=== PATIENT | male | born 1965 | race Caucasian/White ===

== ENCOUNTER 2019-02-22 03:06 | Emergency (ER) | payer MEDICAID, OTHER ==
[~2019-02-22] VITALS: Ht 177.8 cm; Wt 83.9 kg
[2019-02-22] MEDS ORDERED: ASPI-605 PO (03:38)
[2019-02-22] MEDS ORDERED: PANT40TA4 PO (03:38)
[2019-02-22] MEDS ORDERED: TERA2CAP4 PO (03:38)
[2019-02-22] MEDS ORDERED: LABE200T5 PO (03:38)
[2019-02-22] MEDS ORDERED: AMLO10TA7 PO (03:38)
[2019-02-22] MEDS ORDERED: LABE100T5 PO (03:38)
--- NOTE | 2019-02-22 03:45 | NUR ---
Pt provided urine sample sent to lab.
[2019-02-22 03:56] LABS: *BILIRUBIN,URIN NEGATIVE (NEGATIVE); *BLOOD, URINE NEGATIVE (NEGATIVE); *CLARITY,URINE CLEAR (CLEAR); *COLOR,URINE YELLOW (YELLOW); *KETONES,URINE NEGATIVE (NEGATIVE); *UROBILINOGEN,URINE 0.2 E.U./dl (NORMAL); LEUKOCYTE ESTERASE ,URINE NEGATIVE (NEGATIVE); NITRITE, URINE NEGATIVE (NEGATIVE); PH,URINE 5.5 (5.0-8.0); UGLUCOSE NEGATIVE (NEGATIVE)
--- NOTE | 2019-02-22 04:14 | NUR ---
Dr. Viera at bedside for MSE.
[2019-02-22] MEDS ORDERED: IV NORMAL SALINE 1000 ML BAG IV ONE (04:30)
[2019-02-22] MEDS ORDERED: ONDANSETRON 4 MG/2 ML VIAL IV ONE (04:30)
[2019-02-22] MEDS ORDERED: HYDROMORPHONE 1 MG/1 ML DISP.SYRIN IV ONE ×3 (04:30→07:15)
[2019-02-22] MEDS ORDERED: ONDANSETRON 4 MG/2 ML VIAL ONE (04:32)
[2019-02-22] MEDS ORDERED: HYDROMORPHONE 1 MG/1 ML DISP.SYRIN ONE ×3 (04:32→07:08)
[2019-02-22 04:38] LABS: BASOPHILS # (AUTO) 0.1 K/uL (0.0-8.0); BASOPHILS % (AUTO) 0.9 % (0.0-2.0); EOSINOPHILS # (AUTO) 0.4 K/uL (0.0-0.7); EOSINOPHILS % (AUTO) 4.4 % (0.0-7.0); HEMATOCRIT 32.4 % (36.7-47.1); HEMOGLOBIN 11.2 g/dL (12.5-16.3); LYMPHOCYTES # (AUTO) 2.1 K/uL (20.0-40.0); LYMPHOCYTES % (AUTO) 23.4 % (20.5-51.5); MEAN CORPUSCULAR HEMOGLOBIN 32.2 uug (23.8-33.4); MEAN CORPUSCULAR HGB CONC 34 g/dL (32.5-36.3); MEAN CORPUSCULAR VOLUME 93.6 fL (73.0-96.2); MONOCYTES # (AUTO) 0.8 K/uL (2.0-10.0); MONOCYTES % (AUTO) 9.2 % (0.0-11.0); NEUTROPHILS # (AUTO) 5.6 K/uL (1.8-8.9); NEUTROPHILS % (AUTO) 62.1 % (38.5-71.5); PLATELET COUNT (AUTO) 298 K/uL (152-348); RED BLOOD CELL COUNT(AUTO) 3.46 MIL/uL (4.06-5.63); WHITE BLOOD COUNT (AUTO) 8.9 K/uL (3.6-10.2)
--- NOTE | 2019-02-22 04:42 | NUR ---
Xray at bedside.
[2019-02-22 04:51] LABS: BILIRUBIN,DIRECT 0.1 mg/dL (0.0-0.2); BILIRUBIN,TOTAL 0.2 mg/dL (0.2-1.0); CREATININE 1.3 mg/dL (0.6-1.3); TOTAL PROTEIN, SERUM 7.3 g/dL (6.4-8.2)
--- NOTE | 2019-02-22 05:01 | NUR ---
Pt out of ER for CT.
[2019-02-22] MEDS ORDERED: SWABABLE VALVE TRANSFER SET EA MC ONE (05:09)
[2019-02-22] MEDS ORDERED: IOHEXOL 350 100 ML INFUS..BTL ONE (05:10)
[2019-02-22] MEDS ORDERED: IV NORMAL SALINE 250 ML IV ONE (05:10)
--- NOTE | 2019-02-22 05:25 | NUR ---
Pt back to ER from CT.
--- NOTE | 2019-02-22 07:17 | NUR ---
Report given to Medina Floyd RN.
--- NOTE | 2019-02-22 07:27 | NUR ---
case hardener called from [facility] called and talked to dr. mccoy.
--- NOTE | 2019-02-22 07:51 | NUR ---
called [facility], talked to macrina marquez, and faxed the summary report per request at [phone].
--- NOTE | 2019-02-22 08:00 | NUR ---
CALLED [facility] FOR A LATERAL TRANSFER OF A HIGHER LEVEL OF CARE. AND SPOKEN WITH LICHA CABA.
--- NOTE | 2019-02-22 08:06 | NUR ---
macrina from [facility] caled back and said that their surgeon cannot accept the pt.
--- NOTE | 2019-02-22 08:07 | NUR ---
called [facility] and talked to valerie at [facility].
--- NOTE | 2019-02-22 08:14 | NUR ---
called [facility]ed to eddie. per eddie, only ob and pediatric is available today.
--- NOTE | 2019-02-22 08:15 | NUR ---
CALLED [facility] CARDIOTHORACIC SURGEON DR GREGORY JAVED AND LEFT A MESSAGE WITH REGULATORY COORDINATOR RAMIN.
--- NOTE | 2019-02-22 08:21 | NUR ---
called [facility] at [phone], was told that they dont accept thoracic pts.
--- NOTE | 2019-02-22 08:24 | NUR ---
KARLA FROM [facility] CALLED AND SAID THAT DR. HUE HUBER WHO IS SOLAR ENERGY ENGINEER FOR DR. GREGORY SMILEY, CANNOT ACCEPT NEW PT NOW.
--- NOTE | 2019-02-22 08:26 | NUR ---
CALLED [facility] REGARDING PT TRANSFER FOR HIGHER LEVEL OF CARE AND LEFT MESSAGE WITH MACHINING MANAGER ANSWERING MACHINE.
--- NOTE | 2019-02-22 08:30 | NUR ---
CALLED DR. WEEMS AND DR. WEEMS TALKED TO DR. BALLARD. Addendum: 02/22/[address] BROUSSARD SCHOOL PSYCHOLOGIST ASSISTANT FOR DR. WEEMS CANNOT ACCEPT PT BECAUSE HE HAS 2 EMERGENCIES NOW.
--- NOTE | 2019-02-22 08:38 | NUR ---
DR. MUÑOZ FROM [facility] CALLED BACK AND SAID THAT HE IS NOT AVAILABLE TODAY.
--- NOTE | 2019-02-22 08:47 | NUR ---
CALLED [facility] AND TALKED TO AZEEM AND FAXED THE SUMMARY REPORT TO [phone]
--- NOTE | 2019-02-22 09:20 | NUR ---
PT WANTED TO GO HOME AMA. DR BALLARD TALKED TO PT AND EXPLAINED OF THE HIGH RISKS. PT INSISTED TO GO AMA. VSS. NO C/O PAIN AT THIS TIME.
--- NOTE | 2019-02-22 09:35 | NUR ---
PT SIGNED AMA FORM. DISCHARGED VIA W/C ACCOMPANIED BY HIS GIRLFRIEND.
[2019-02-22 09:47] VITALS: BP 120/64
== END 2019-02-22 09:30 | disposition left against medical advice (07) ==
LOC: ER 03:07
DX: R10.9 Unspecified abdominal pain (principal); F15.10 Other stimulant abuse, uncomplicated; F17.290 Nicotine dependence, other tobacco product, uncomplicated; Z71.6 Tobacco abuse counseling; Z95.1 Presence of aortocoronary bypass graft; Z79.82 Long term (current) use of aspirin; Z79.899 Other long term (current) drug therapy
CPT/HCPCS: 36415; 71045; 71275; 74174; 80048; 80076; 81001; 83690; 84484; 85025; 85730; 86850; 86900; 86901; 93005; 96374; 96375; 96376; 99284; 99406; J1170 ×3; J2405; Q9967; 70030-TC; A4663; J7030; J7050

== ENCOUNTER 2019-08-07 00:15 | Emergency (ER) | payer OTHER ==
[~2019-08-07] VITALS: Ht 177.8 cm; Wt 86.2 kg
[2019-08-07] MEDS ORDERED: ACETAMINOPHEN 325 MG TABLET PO ONE (01:00)
[2019-08-07] MEDS ORDERED: CLINDAMYCIN PHOSPHATE IV 900 MG in IV DEXTROSE 5% 100 ML IV ONE (01:00)
[2019-08-07] MEDS ORDERED: IV NS 1000 ML 1,000 ML IV ONE (01:00)
[2019-08-07] MEDS ORDERED: MORPHINE SULFATE 4 MG/1 ML DISP.SYRIN IV ONE (01:00)
[2019-08-07] MEDS ORDERED: ACETAMINOPHEN 325 MG TABLET ONE (01:28)
[2019-08-07] MEDS ORDERED: MORPHINE SULFATE 4 MG/1 ML DISP.SYRIN ONE (01:29)
[2019-08-07] MEDS ORDERED: CLINDAMYCIN 900MG/D5W 100ML IVPB **ER PYXIS ONLY IJ ONE (02:28)
--- NOTE | 2019-08-07 02:35 | NUR ---
blood drawn and sent to lab
[2019-08-07 02:53] LABS: BASOPHILS # (AUTO) 0.1 K/uL (0.0-8.0); BASOPHILS % (AUTO) 0.7 % (0.0-2.0); EOSINOPHILS # (AUTO) 0.1 K/uL (0.0-0.7); HEMATOCRIT 39.4 % (36.7-47.1); HEMOGLOBIN 13.2 g/dL (12.5-16.3); LYMPHOCYTES # (AUTO) 0.9 K/uL (20.0-40.0); LYMPHOCYTES % (AUTO) 11.5 % (20.5-51.5); MEAN CORPUSCULAR HEMOGLOBIN 30.1 uug (23.8-33.4); MEAN CORPUSCULAR HGB CONC 34 g/dL (32.5-36.3); MEAN CORPUSCULAR VOLUME 89.7 fL (73.0-96.2); MONOCYTES # (AUTO) 0.6 K/uL (2.0-10.0); MONOCYTES % (AUTO) 7.4 % (0.0-11.0); NEUTROPHILS # (AUTO) 6.2 K/uL (1.8-8.9); NEUTROPHILS % (AUTO) 79.4 % (38.5-71.5); PLATELET COUNT (AUTO) 153 K/uL (152-348); RED BLOOD CELL COUNT(AUTO) 4.39 MIL/uL (4.06-5.63); WHITE BLOOD COUNT (AUTO) 7.9 K/uL (3.6-10.2)
[2019-08-07 02:54] LABS: CREATININE 1.4 mg/dL (0.6-1.3); POTASSIUM 3.6 mmol/L (3.5-5.1)
[2019-08-07] MEDS ORDERED: MORPHINE SULFATE 4 MG/1 ML DISP.SYRIN IM ONE (03:00)
--- NOTE | 2019-08-07 05:00 | NUR ---
Called [facility] for panel placement
--- NOTE | 2019-08-07 05:25 | NUR ---
Patient does not wish to proceed with medical care recommended by Dr. Pimentel. Patient given information related to possible complications, up to and including , which could occur as a result of leaving the hospital at this time. Patient verbalizes understanding of risks involved due to leaving against medical advice. Patient has signed AMA form. IV removed. Catheter intact and site benign. Pressure and 4x4 gauze applied to site. No bleeding noted. Patient ambulating with steady gait
--- NOTE | 2019-08-07 05:25 | NUR ---
Patient's friend outside to take patient home.
[2019-08-07 05:35] VITALS: BP 152/102
== END 2019-08-07 05:25 | disposition left against medical advice (07) ==
LOC: ER 00:22
DX: L03.211 Cellulitis of face (principal); N28.9 Disorder of kidney and ureter, unspecified; I10 Essential (primary) hypertension; F17.200 Nicotine dependence, unspecified, uncomplicated; Z79.82 Long term (current) use of aspirin; Z79.899 Other long term (current) drug therapy
CPT/HCPCS: 36415; 70486; 80048; 83605; 85025; 87400; 96365; 96372; 99285; J2270; J3490; A4663; J7030

== ENCOUNTER 2019-08-27 16:14 | Emergency (ER) | payer OTHER ==
[~2019-08-27] VITALS: Ht 177.8 cm; Wt 85.3 kg
--- NOTE | 2019-08-27 16:21 | NUR ---
DR CAMPUZANO AT BEDSIDE FOR MSE. STROKE ASSESSMENT AND STROKE PROTOCOLS IN PLACE. PT IS ALERT AND ORIENTED X 4. NIHSS SCORE OF 2.
--- NOTE | 2019-08-27 16:35 | NUR ---
WENT DOWN FOR CT
--- NOTE | 2019-08-27 16:35 | NUR ---
REFUSED IV INSERTION ON GOOD ARM, INSISTING ON SPECIFIC LOCATION TO INSERT IV.
[2019-08-27] MEDS ORDERED: AMLO10TA4 PO (16:36)
--- NOTE | 2019-08-27 16:45 | NUR ---
BACK FROM CT STABLE CONDITION AT THIS TIME, AMBULATORY WENT TO BATHROOM.
[2019-08-27 17:00] LABS: *BILIRUBIN,URIN NEGATIVE (NEGATIVE); *BLOOD, URINE NEGATIVE (NEGATIVE); *CLARITY,URINE CLEAR (CLEAR); *COLOR,URINE YELLOW (YELLOW); *KETONES,URINE NEGATIVE (NEGATIVE); *UROBILINOGEN,URINE 0.2 E.U./dl (NORMAL); LEUKOCYTE ESTERASE ,URINE NEGATIVE (NEGATIVE); NITRITE, URINE NEGATIVE (NEGATIVE); PH,URINE 5.5 (5.0-8.0); UGLUCOSE NEGATIVE (NEGATIVE)
[2019-08-27] MEDS ORDERED: ASPIRIN 325 MG TABLET PO ONE (17:00)
[2019-08-27] MEDS ORDERED: ASPIRIN 325 MG TABLET ONE (17:04)
[2019-08-27 17:05] LABS: BASOPHILS # (AUTO) 0.1 K/uL (0.0-8.0); BASOPHILS % (AUTO) 1.2 % (0.0-2.0); EOSINOPHILS # (AUTO) 0.2 K/uL (0.0-0.7); EOSINOPHILS % (AUTO) 3.2 % (0.0-7.0); HEMATOCRIT 40.2 % (36.7-47.1); HEMOGLOBIN 13.3 g/dL (12.5-16.3); LYMPHOCYTES # (AUTO) 2.1 K/uL (20.0-40.0); LYMPHOCYTES % (AUTO) 29.8 % (20.5-51.5); MEAN CORPUSCULAR HEMOGLOBIN 29.9 uug (23.8-33.4); MEAN CORPUSCULAR HGB CONC 33 g/dL (32.5-36.3); MEAN CORPUSCULAR VOLUME 90.5 fL (73.0-96.2); MONOCYTES # (AUTO) 0.6 K/uL (2.0-10.0); MONOCYTES % (AUTO) 8.9 % (0.0-11.0); NEUTROPHILS # (AUTO) 4.1 K/uL (1.8-8.9); NEUTROPHILS % (AUTO) 56.9 % (38.5-71.5); PLATELET COUNT (AUTO) 194 K/uL (152-348); RED BLOOD CELL COUNT(AUTO) 4.44 MIL/uL (4.06-5.63); WHITE BLOOD COUNT (AUTO) 7.2 K/uL (3.6-10.2)
[2019-08-27 17:14] LABS: CREATININE 1.6 mg/dL (0.6-1.3); POTASSIUM 4.1 mmol/L (3.5-5.1)
[2019-08-27 17:20] LABS: BILIRUBIN,DIRECT 0.1 mg/dL (0.0-0.2); BILIRUBIN,TOTAL 0.2 mg/dL (0.2-1.0); TOTAL PROTEIN, SERUM 7.4 g/dL (6.4-8.2)
[2019-08-27] MEDS ORDERED: LABETALOL HCL 100 MG/20 ML VIAL ONE (17:20)
[2019-08-27 17:23] LABS: *AMPHETAMINE, URINE POSITIVE (NEGATIVE); *BARBITURATE, URINE NEGATIVE (NEGATIVE); *CANNABINOID, URINE NEGATIVE (NEGATIVE); *COCCAINE, URINE POSITIVE (NEGATIVE); *OPIATE, URINE NEGATIVE (NEGATIVE); *PHENCYCLIDINE SCREEN,URINE NEGATIVE (NEGATIVE)
[2019-08-27] MEDS ORDERED: LABETALOL HCL 100 MG/20 ML VIAL IV ONE (17:30)
--- NOTE | 2019-08-27 17:54 | NUR ---
Patient does not wish to proceed with medical care recommended by Dr. Sparks. Patient given information related to possible complications, up to and including , which could occur as a result of leaving the hospital at this time. Patient verbalizes understanding of risks involved due to leaving against medical advice. Patient has signed AMA form. R FA IV removed. No signs of bleeding. Ambulated out of ER.
[2019-08-27 18:01] VITALS: BP 158/107
== END 2019-08-27 17:55 | disposition left against medical advice (07) ==
LOC: ER 16:14
DX: I63.9 Cerebral infarction, unspecified (principal); R27.0 Ataxia, unspecified; R40.2362 Coma scale, best motor response, obeys commands, at arrival to emergency department; R40.2142 Coma scale, eyes open, spontaneous, at arrival to emergency department; R40.2252 Coma scale, best verbal response, oriented, at arrival to emergency department; I10 Essential (primary) hypertension; R29.702 NIHSS score 2; Z95.828 Presence of other vascular implants and grafts; F15.10 Other stimulant abuse, uncomplicated; N28.9 Disorder of kidney and ureter, unspecified
CPT/HCPCS: 36415; 70450; 71045; 80048; 80061; 80076; 80307; 81001; 84484; 85025; 85730; 93005; 96374; 99285; J3490; 70030-TC; A4663

== ENCOUNTER 2020-07-22 09:41 | Emergency (ER) | payer OTHER ==
[~2020-07-22] VITALS: Ht 177.8 cm; Wt 83.9 kg
[~2020-07-22 09:41] MED LIST: AMLO10TA4 PO
[2020-07-22 10:24] LABS: CREATININE 1.4 mg/dL (0.6-1.3)
[2020-07-22 10:28] LABS: BASOPHILS # (AUTO) 0.1 K/uL (0.0-8.0); BASOPHILS % (AUTO) 0.8 % (0.0-2.0); EOSINOPHILS # (AUTO) 0.1 K/uL (0.0-0.7); EOSINOPHILS % (AUTO) 1.5 % (0.0-7.0); HEMATOCRIT 45.9 % (36.7-47.1); HEMOGLOBIN 15.1 g/dL (12.5-16.3); LYMPHOCYTES # (AUTO) 1.6 K/uL (20.0-40.0); LYMPHOCYTES % (AUTO) 18.2 % (20.5-51.5); MEAN CORPUSCULAR HEMOGLOBIN 30.6 uug (23.8-33.4); MEAN CORPUSCULAR HGB CONC 33 g/dL (32.5-36.3); MONOCYTES # (AUTO) 0.6 K/uL (2.0-10.0); MONOCYTES % (AUTO) 7.6 % (0.0-11.0); NEUTROPHILS # (AUTO) 6.1 K/uL (1.8-8.9); NEUTROPHILS % (AUTO) 71.9 % (38.5-71.5); PLATELET COUNT (AUTO) 182 K/uL (152-348); RED BLOOD CELL COUNT(AUTO) 4.94 MIL/uL (4.06-5.63); WHITE BLOOD COUNT (AUTO) 8.5 K/uL (3.6-10.2)
[2020-07-22] MEDS ORDERED: ASPIRIN 325 MG TABLET PO ONE (11:00)
--- NOTE | 2020-07-22 11:27 | NUR ---
Patient does not want to be admitted to a hospital. Patient does not wish to proceed with medical care recommended by Dr. Falk. Patient was given information related to possible complications, up to and including , which could occur as a result of leaving the hospital at this time. Patient verbalized understanding of risks involved due to leaving against medical advice. Patient has signed AMA form. Patient left ER with slow steady gait. He said he will wait for his daughter for a ride.
[2020-07-22] MEDS ORDERED: ASPIRIN EC 325 MG TABLET.DR PO ONE (11:29)
== END 2020-07-22 11:28 | disposition left against medical advice (07) ==
LOC: ER 09:41
DX: H49.10 Fourth [trochlear] nerve palsy, unspecified eye (principal); H55.89 Other irregular eye movements; R42 Dizziness and giddiness; I69.993 Ataxia following unspecified cerebrovascular disease; Z79.899 Other long term (current) drug therapy; R03.0 Elevated blood-pressure reading, without diagnosis of hypertension
CPT/HCPCS: 36415; 70030-TC; 70450; 71045; 85025; 85730; 93005; A4663

== ENCOUNTER 2021-04-19 01:35 | Emergency (ER) | payer OTHER ==
[~2021-04-19] VITALS: Ht 182.9 cm; Wt 79.4 kg
[2021-04-19] MEDS ORDERED: ONDANSETRON 4 MG/2 ML VIAL IV ONE (02:15)
[2021-04-19] MEDS ORDERED: METOPROLOL TARTRATE 5 MG/5 ML VIAL IVP ONE ×2 (02:15→02:30)
[2021-04-19] MEDS ORDERED: NITROGLYCERIN OINT 1 GM PACKET TP ONE ×2 (02:15→02:29)
[2021-04-19] MEDS ORDERED: MORPHINE SULFATE 4 MG/1 ML DISP.SYRIN IV ONE (02:15)
[2021-04-19] MEDS ORDERED: NITROGLYCERIN 0.4 MG/TAB BOTTLE SL ONE ×2 (02:15→02:30)
[2021-04-19] MEDS ORDERED: SWABABLE VALVE TRANSFER SET EA MC ONE (02:29)
[2021-04-19] MEDS ORDERED: IV NORMAL SALINE 250 ML IV ONE (02:29)
[2021-04-19] MEDS ORDERED: IOHEXOL 350 100 ML INFUS..BTL ONE (02:29)
[2021-04-19] MEDS ORDERED: MORPHINE SULFATE 4 MG/1 ML DISP.SYRIN ONE (02:30)
[2021-04-19] MEDS ORDERED: ONDANSETRON 4 MG/2 ML VIAL ONE (02:30)
[2021-04-19] MEDS ORDERED: IV NORMAL SALINE 500 ML BAG IV ONE (02:30)
[2021-04-19] MEDS ORDERED: MORPHINE SULFATE 2 MG/1 ML DISP.SYRIN ONE (02:30)
--- NOTE | 2021-04-19 02:33 | NUR ---
PATIENT WAS GIVEN 1ST DOSE OF NITRO SUB LINGUAL CP PAIN IS 2/10 ORESSURE.
--- NOTE | 2021-04-19 02:36 | NUR ---
PATIENT OUT OF UNIT FOR CT SCAN
--- NOTE | 2021-04-19 02:38 | NUR ---
PATIENT DENIES CP AT THIS TIME.
--- NOTE | 2021-04-19 02:51 | NUR ---
PATIENT BACK FROM CT SCAN WITH NO DISTRESS NOTED. PATIENT DENIES CP OR SOB AT THIS TIME.
[2021-04-19 03:06] LABS: HEMATOCRIT 23.4 % (36.7-47.1); MEAN CORPUSCULAR HEMOGLOBIN 31.6 uug (23.8-33.4); MEAN CORPUSCULAR VOLUME 90.2 fL (73.0-96.2); PLATELET COUNT (AUTO) 54 K/uL (152-348)
[2021-04-19] MEDS ORDERED: LABETALOL HCL 100 MG/20 ML VIAL ONE (03:17)
--- NOTE | 2021-04-19 03:23 | NUR ---
Called [facility] for STAT readings for CTA of the chest and abdomen
[2021-04-19 03:37] LABS: POTASSIUM 3.8 mmol/L (3.5-5.1)
[2021-04-19 03:42] LABS: CREATININE 8.2 mg/dL (0.6-1.3)
[2021-04-19 03:50] LABS: BILIRUBIN,DIRECT 0.2 mg/dL (0.0-0.2); BILIRUBIN,TOTAL 0.9 mg/dL (0.2-1.0); TOTAL PROTEIN, SERUM 7.8 g/dL (6.4-8.2)
--- NOTE | 2021-04-19 03:55 | NUR ---
CALLED [facility] ER SPOKE WITH CHARGE NURSE RENATO MURPHY HIGHER LEVEL OF CARE. TEST RESULTS FAXED
[2021-04-19] MEDS ORDERED: LABETALOL HCL 100 MG/20 ML VIAL IV ONE (04:00)
[2021-04-19] MEDS ORDERED: ESMOLOL 2.5 GM/NS 250 ML DRIP 250 ML IV PRN (04:00)
[2021-04-19] MEDS ORDERED: ESMOLOL 2.5 GM/NS 250 ML DRIP 250 ML IV ONE (04:13)
[2021-04-19 04:20] VITALS: BP 189/134
--- NOTE | 2021-04-19 04:33 | NUR ---
CALLED [facility], SPOKE TO KENNETH WHO IS REQUESTING FACESHEET AND SUMMARY REPORT TO BE FAXED TO
--- NOTE | 2021-04-19 08:00 | NUR ---
Pt is resting in gurney with NAD noted at this time. Esmolol drip is at 170mcg/kg/min at this time. BP 142/91, HR 68, RR 18, Pulse ox 99%.
--- NOTE | 2021-04-19 08:13 | NUR ---
CALLED [facility] FOR HIGHER LEVEL OF CARE NO AVAILABLE BEDS AT THIS TIME.
--- NOTE | 2021-04-19 08:26 | NUR ---
CALLED SPOKE WITH [facility] NURSE FOR HIGHER LEVEL OF CARE TRANSFER.
--- NOTE | 2021-04-19 09:45 | NUR ---
Esmolol drip increased to 200mcg/kg/min, per titrate to keep pt's HR in the 60's. BP 129/94 HR 79 RR 17 Pulse Ox 98%. Pt stated he is hungry, pt is NPO with ice chips only at this time per . Plan of care discussed with pt. Multiple facilities including every facility in the [facility] and major hospitals in the [facility] area with service needed have been contacted for HLOC transfer with no acceptance at this time.
--- NOTE | 2021-04-19 09:53 | NUR ---
[facility]IN[facility] BUTLER CALLED WILL BE NOT ABLE TO TAKE PATIENT PER GISELA.
--- NOTE | 2021-04-19 11:04 | NUR ---
ALLAN NURSE FROM [facility] CALLED PATIENT WAS ACCEPTED FOR TRANSFER BY DR FENG.
--- NOTE | 2021-04-19 11:22 | NUR ---
REPORT GIVEN TO RONIT DURÁN AT [facility] [phone]
--- NOTE | 2021-04-19 12:10 | NUR ---
REPORT GIVEN TO NURSE [facility].
== END 2021-04-19 12:10 | disposition short-term general hospital (02) ==
LOC: ER 01:36
DX: I71.01 Dissection of thoracic aorta (principal); I71.02 Dissection of abdominal aorta; I21.4 Non-ST elevation (NSTEMI) myocardial infarction; I16.1 Hypertensive emergency; I10 Essential (primary) hypertension; F15.10 Other stimulant abuse, uncomplicated; F17.210 Nicotine dependence, cigarettes, uncomplicated; N17.9 Acute kidney failure, unspecified; Z20.822 Contact with and (suspected) exposure to COVID-19
CPT/HCPCS: 36415; 71275; 74175; 80048; 80076; 80307; 83880; 84484; 85025; 85379; 85730; 86850; 86900; 86901; 86920; 87426; 93005; 96361; 96365; 96366; 96375; 99291; 99406; J2270 ×2; J2405; J3490 ×5; Q9967; 70030-TC; A4663; J7030; J7050

== ENCOUNTER 2021-05-28 20:51 | Emergency (ER) | payer OTHER ==
[~2021-05-28] VITALS: Ht 177.8 cm; Wt 81.6 kg
[2021-05-28] MEDS ORDERED: ASPIRIN 81 MG TAB.CHEW PO ONE (21:15)
[2021-05-28] MEDS ORDERED: NITROGLYCERIN OINT 1 GM PACKET TP ONE ×2 (21:15→21:54)
[2021-05-28] MEDS ORDERED: GUAIFENESIN/CODEINE 5 ML LIQUID UDC PO ONE (21:30)
--- NOTE | 2021-05-28 21:30 | NUR ---
Pt brought back to room ED2A by workforce consultant Adrian. Pt placed on gurney in pos of comfort and connected to monitor. VSS, PE WNL pt complaining of chest pain 6/10 and moaning and growning.
--- NOTE | 2021-05-28 21:35 | NUR ---
EDMD at bedside to eval pt.
--- NOTE | 2021-05-28 21:50 | NUR ---
Ordered meds given to pt, pt tolerated well with no s/sx of reaction noted. PCXR performed. IV started and blood collected for lab tests. Pt resting comfortably
[2021-05-28 21:51] LABS: CREATININE 5.7 mg/dL (0.6-1.3); POTASSIUM 3.6 mmol/L (3.5-5.1)
[2021-05-28] MEDS ORDERED: ASPIRIN 81 MG TAB.CHEW ONE (21:54)
[2021-05-28 21:56] LABS: HEMATOCRIT 23.4 % (36.7-47.1); MEAN CORPUSCULAR HEMOGLOBIN 32.1 uug (23.8-33.4); MEAN CORPUSCULAR VOLUME 94.4 fL (73.0-96.2); PLATELET COUNT (AUTO) 196 K/uL (152-348)
[2021-05-28] MEDS ORDERED: GUAIFENESIN/CODEINE 5 ML LIQUID UDC ONE (21:56)
[2021-05-28] MEDS ORDERED: HYDROCODONE/APAP 10-325 MG TABLET ONE (21:56)
[2021-05-28] MEDS ORDERED: HYDROCODONE/APAP 10-325 MG TABLET PO ONE (22:00)
[2021-05-28 22:04] LABS: BILIRUBIN,DIRECT 0.1 mg/dL (0.0-0.2); BILIRUBIN,TOTAL 0.3 mg/dL (0.2-1.0); TOTAL PROTEIN, SERUM 6.8 g/dL (6.4-8.2)
[2021-05-28] MEDS ORDERED: AZITHROMYCIN IV 500 MG in IV DEXTROSE 5% 250 ML IV ONE (22:15)
[2021-05-28] MEDS ORDERED: HYDR-3980 PO (22:35)
[2021-05-28] MEDS ORDERED: AZIT250T13 PO (22:35)
[2021-05-28] MEDS ORDERED: GUAI-671 PO (22:35)
[2021-05-28] MEDS ORDERED: CEFU500T66 PO (22:35)
[2021-05-28] MEDS ORDERED: CEFTRIAXONE 1 G in IV DEXTROSE 5% 50 ML IV ONE (22:45)
[2021-05-28] MEDS ORDERED: AZITHROMYCIN 500MG/ D5W 250ML IVPB **ER PYXIS ONLY IV ONE (22:53)
[2021-05-28] MEDS ORDERED: CEFTRIAXONE /D5W 50ML IVPB **ER PYXIS IV ONE (22:59)
--- NOTE | 2021-05-28 23:10 | NUR ---
EDMD ordered 2 iv abx and ordered pt to be signed out AMA after completeing both IV abx.
--- NOTE | 2021-05-28 23:30 | NUR ---
Pt recieved both abx without difficulty. Pt tolerated well with no s/sx of reaction. IV DCed and pt told to get ready to be DCed home.
--- NOTE | 2021-05-28 23:45 | NUR ---
Last VS taken. VSS, PE WNL, pt denies any pain, sob, dizziness, n/v. bp:100/70, 96% RA, 85bpm, 15rpm. Had pt sign out AMA and excorted to waiting room via ambulation. Pt had good appearance and VSS. IV Dced and IV site dressed.
[2021-05-29 00:31] VITALS: BP 100/70
== END 2021-05-28 23:45 | disposition left against medical advice (07) ==
LOC: ER 20:55
DX: J18.9 Pneumonia, unspecified organism (principal); J81.1 Chronic pulmonary edema; N19 Unspecified kidney failure; Z86.79 Personal history of other diseases of the circulatory system; Z87.891 Personal history of nicotine dependence; R94.31 Abnormal electrocardiogram [ECG] [EKG]; R93.89 Abnormal findings on diagnostic imaging of other specified body structures
CPT/HCPCS: 36415; 71045; 80048; 80076; 83880; 84484; 85025; 93005; 96365; 96368; 99285; J0456; J0696; 70030-TC; A4663

== ENCOUNTER 2021-06-25 00:54 | Emergency (ER) | payer OTHER ==
[~2021-06-25] VITALS: Ht 177.8 cm; Wt 74.8 kg
[~2021-06-25 00:54] MED LIST changes: -AMLO10TA4 PO; +AZIT250T13 PO; +CEFU500T66 PO; +GUAI-671 PO; +HYDR-3980 PO
--- NOTE | 2021-06-25 01:06 | NUR ---
Dr Pablo into eval patient.
[2021-06-25] MEDS ORDERED: NITROGLYCERIN OINT 1 GM PACKET TP ONE ×2 (01:15→01:31)
[2021-06-25] MEDS ORDERED: HYDROMORPHONE 1 MG/1 ML DISP.SYRIN IV ONE ×2 (01:15→07:00)
[2021-06-25] MEDS ORDERED: CLONIDINE HCL 0.1 MG TABLET PO ONE ×2 (01:15→02:45)
[2021-06-25] MEDS ORDERED: ONDANSETRON 4 MG/2 ML VIAL IV ONE (01:15)
[2021-06-25] MEDS ORDERED: AMLO10TA59 PO (01:18)
[2021-06-25] MEDS ORDERED: AMIO200T5 PO (01:18)
[2021-06-25] MEDS ORDERED: ASPI81TA31 PO (01:18)
[2021-06-25] MEDS ORDERED: ATOR20TA PO (01:18)
--- NOTE | 2021-06-25 01:28 | NUR ---
Patient walked into ER C/O constant nonradiating CP with SOB that started 4 days ago, describing pain as 7/10 aching with pain getting worse in the last 2 days. Patient states he just came in now "because I could not get a ride."
[2021-06-25 01:29] LABS: HEMATOCRIT 27.7 % (36.7-47.1); MEAN CORPUSCULAR HEMOGLOBIN 32.4 uug (23.8-33.4); MEAN CORPUSCULAR VOLUME 96.6 fL (73.0-96.2); PLATELET COUNT (AUTO) 201 K/uL (152-348)
[2021-06-25] MEDS ORDERED: CLONIDINE HCL 0.1 MG TABLET ONE ×2 (01:31→02:46)
[2021-06-25] MEDS ORDERED: ONDANSETRON 4 MG/2 ML VIAL ONE (01:31)
[2021-06-25] MEDS ORDERED: HYDROMORPHONE 1 MG/1 ML DISP.SYRIN ONE ×2 (01:31→07:10)
[2021-06-25 01:58] LABS: CREATININE 3.8 mg/dL (0.6-1.3); POTASSIUM 4.2 mmol/L (3.5-5.1)
--- NOTE | 2021-06-25 02:10 | NUR ---
Patient sleeping on gurny with no distress noted.
--- NOTE | 2021-06-25 02:30 | NUR ---
Chele senior technical specialist attempting to contact medical technicians to do VQ scan.
[2021-06-25] MEDS ORDERED: CHLO25TA13 GT (03:10)
[2021-06-25] MEDS ORDERED: OXYC-128 PO (03:10)
[2021-06-25] MEDS ORDERED: CLON0.1T PO (03:41)
--- NOTE | 2021-06-25 03:50 | NUR ---
Chele milner to get a hold of certified surgical technologist who is on his way to do procedure.
--- NOTE | 2021-06-25 07:16 | NUR ---
PT resting in bed w/o acute pain/distress, states pain is less and is 4/10.
--- NOTE | 2021-06-25 08:03 | NUR ---
Spoke to Angel at [employer] to call [employer] for ETA.
--- NOTE | 2021-06-25 08:50 | NUR ---
Placed a call to nursing supervisor opening and picking andie PRESCOTT scan tech. Also spoke to health tech for ETA.
--- NOTE | 2021-06-25 09:15 | NUR ---
Pt left Er for VQ scan via wheelchair, w/ VQ scan techcarly.
--- NOTE | 2021-06-25 10:10 | NUR ---
Pt back from VQ scan. resting in bed.
--- NOTE | 2021-06-25 10:41 | NUR ---
Pt out of ER for VQ scan, per Sushant Sandhu needed couple of more pictures.
--- NOTE | 2021-06-25 11:49 | NUR ---
IV removed. Catheter intact and site benign. Pressure and 4x4 gauze applied to site. No bleeding noted.
--- NOTE | 2021-06-25 11:49 | NUR ---
Patient does not wish to proceed with medical care recommended by Dr. Fajardo). Patient given information related to possible complications, up to and including , which could occur as a result of leaving the hospital at this time. Patient verbalizes understanding of risks involved due to leaving against medical advice. Patient has signed AMA form.
--- NOTE | 2021-06-25 11:55 | NUR ---
Pt left ER w/ steady gait. stressed follow up care for worsening symptoms.
[2021-06-25 11:57] VITALS: BP 141/82
== END 2021-06-25 11:57 | disposition home or self-care (01) ==
LOC: ER 00:55
DX: R07.89 Other chest pain (principal); F17.210 Nicotine dependence, cigarettes, uncomplicated; Z79.2 Long term (current) use of antibiotics; Z79.899 Other long term (current) drug therapy; Z20.822 Contact with and (suspected) exposure to COVID-19
CPT/HCPCS: 36415; 71045; 78579; 80048; 84484 ×2; 85025; 85379; 87426; 93005; 96374; 96375; 96376; 99285; A9540; J1170 ×2; J2405; 70030-TC; A4663

== ENCOUNTER 2021-06-28 20:44 | Inpatient (IN) | payer OTHER ==
[~2021-06-28] VITALS: Ht 172.7 cm; Wt 74.8 kg
[~2021-06-28 20:44] MED LIST changes: +AMIO200T5 PO; +AMLO10TA59 PO; +ASPI81TA31 PO; +ATOR20TA PO; -AZIT250T13 PO; -CEFU500T66 PO; +CHLO25TA13 GT; +CLON0.1T PO; -GUAI-671 PO; -HYDR-3980 PO; +OXYC-128 PO
--- NOTE | 2021-06-28 21:40 | NUR ---
DR CUEVAS AT BEDSIDE FOR MSE.
[2021-06-28] MEDS ORDERED: NITROGLYCERIN OINT 1 GM PACKET TP ONE ×2 (21:45→21:55)
[2021-06-28] MEDS ORDERED: HYDROCODONE/APAP 5-325MG TABLET PO ONE (21:45)
[2021-06-28] MEDS ORDERED: HYDROCODONE/APAP 5-325MG TABLET ONE (21:55)
[2021-06-28] MEDS ORDERED: ENALAPRILAT DIHYDRATE 1.25 MG/1 ML VIAL IV ONE ×2 (22:00→22:12)
[2021-06-28] MEDS ORDERED: NITROGLYCERIN 0.4 MG/TAB BOTTLE SL ONE ×2 (22:00→22:12)
[2021-06-28 22:04] LABS: HEMATOCRIT 27.5 % (36.7-47.1); MEAN CORPUSCULAR HEMOGLOBIN 32.5 uug (23.8-33.4); MEAN CORPUSCULAR VOLUME 96.5 fL (73.0-96.2); PLATELET COUNT (AUTO) 222 K/uL (152-348)
[2021-06-28 22:10] LABS: CREATININE 3.5 mg/dL (0.6-1.3); POTASSIUM 4.6 mmol/L (3.5-5.1)
--- NOTE | 2021-06-28 22:18 | NUR ---
BLOOD PRESSURE MANAGEMENT 2204 - BP: 201/138, HR: 96 - VASOTEC 2.5 MG IV PUSH GIVEN 2207 - BP: 194/124, HR: 90 - NITROGLYCERIN 0.4 MG TAB SL GIVEN - CHEST PAIN 03/05 2213 - BP: 135/93, HR: 101 - NITROGLYCERIN 0.4 MG TAB SL GIVEN - CHEST PAIN 10/03 2218 - BP: 90/63 - 3RD DOSE OF NITRO HELD. CHEST PAIN IS 07/06
[2021-06-28 22:24] LABS: BILIRUBIN,DIRECT 0.1 mg/dL (0.0-0.2); BILIRUBIN,TOTAL 0.3 mg/dL (0.2-1.0); TOTAL PROTEIN, SERUM 7.5 g/dL (6.4-8.2)
--- NOTE | 2021-06-28 22:32 | NUR ---
RE-ASSESSED BLOOD PRESSURE AT THIS TIME: 110/77, HR: 89, SPO2: 96% ON RA
[2021-06-28 22:33] LABS: *BILIRUBIN,URIN NEGATIVE (NEGATIVE); *CLARITY,URINE CLEAR (CLEAR); *COLOR,URINE YELLOW (YELLOW); *KETONES,URINE NEGATIVE (NEGATIVE); *UROBILINOGEN,URINE 0.2 E.U./dl (NORMAL); LEUKOCYTE ESTERASE ,URINE NEGATIVE (NEGATIVE); NITRITE, URINE NEGATIVE (NEGATIVE); UGLUCOSE NEGATIVE (NEGATIVE)
[2021-06-28 22:42] LABS: *BLOOD, URINE TRACE INTACT (NEGATIVE)
[2021-06-28] MEDS ORDERED: metoprolol PO (22:50)
[2021-06-28 22:59] LABS: BACTERIA,URINE NONE SEEN /HPF (NONE SEEN); SQUAMOUS EPITHELIAL CELL,UR FEW /HPF (NONE SEEN); WBC,URINE NONE SEEN /HPF (0-3)
--- NOTE | 2021-06-28 23:40 | NUR ---
CALLED CT SCAN FOR NEW ORDER.
--- NOTE | 2021-06-28 23:47 | NUR ---
PT RESTING IN BED, NO C/O CHEST PAIN AT THIS TIME. BLOOD PRESSURE AND HR @ 84, NSR.
--- NOTE | 2021-06-29 01:45 | NUR ---
PT RESTING IN BED AT THIS TIME. PENDING VQ SCAN. NO SIGNS OF DISTRESS. NORMAL SINUS RHYTHM ON MONITOR @ 83. NO CHEST PAIN VERBALIZED.
--- NOTE | 2021-06-29 02:45 | NUR ---
OFF UNIT TO VQ SCAN.
--- NOTE | 2021-06-29 03:17 | NUR ---
PT BACK IN UNIT. TO BATHROOM, THEN WILL RESUME TELE MONITORING.
--- NOTE | 2021-06-29 03:23 | NUR ---
PT BACK IN BED, RESTING WITH NO DISTRESS/C/O CHEST PAIN. NORMAL SINUS RHYTHM ON THE MONITOR @ 75.
--- NOTE | 2021-06-29 03:51 | NUR ---
PERFUSION SCAN RESULTS ARE BACK. MD AWARE. [facility] PAGED FOR PANEL CALL.
--- NOTE | 2021-06-29 03:55 | NUR ---
DR CUEVAS S/W DR GANESH JACKSON. ACCEPTED PT TELE PT/CHEST PAIN. BELONGINGS LIST COMPLETED.
--- NOTE | 2021-06-29 03:57 | NUR ---
CALLED TO GIVE REPORT/FLOOR RN WILL CALL BACK.
[2021-06-29] MEDS ORDERED: REMEDY ESSENTIAL ZINC PASTE 113 GM TP PRN (04:00)
[2021-06-29] MEDS ORDERED: MORPHINE SULFATE 2 MG/1 ML DISP.SYRIN IV PRN (04:00)
[2021-06-29] MEDS ORDERED: ONDANSETRON 4 MG/2 ML VIAL IV PRN (04:00)
[2021-06-29] MEDS ORDERED: NITROGLYCERIN 0.4 MG/TAB BOTTLE SL PRN (04:00)
[2021-06-29] MEDS ORDERED: ACETAMINOPHEN 325 MG TABLET PO PRN (04:00)
[2021-06-29] MEDS ORDERED: HYDROCODONE/APAP 5-325MG TABLET PO PRN (04:00)
--- NOTE | 2021-06-29 04:45 | NUR ---
THIRD FLOOR RN CALLED BACK. REPORT GIVEN TO CHUN CABA. PENDING ROLLOVER PAPERWORK.
--- NOTE | 2021-06-29 05:20 | NUR ---
THIS RN TRANSPORTED PT TO ROOM [address] [facility]. PT ABLE TO AMBULATE IN STEADY GAIT FROM THE GURNEY TO BED. FLOOR BED/ZERO'ED AND LOWERED, ALL BELONGINGS WITH PATIENT. FLOOR SLEEVE MAKER HANDED THE PAPERWORK. CONFERENCE AND EVENT ORGANISER AWARE OF PT'S ARRIVAL TO UNIT.
--- NOTE | 2021-06-29 05:30 | NUR ---
Patient came into the floor via gurney. Alert and oriented x 3. Normal sinus rhythm on tele monitor. BP 148/93, HR: 77, Temperature: 98.6. On room air saturating 100%. Has chest pain, states his pain was a 7/10 in emergency department, but has gone down while on the floor, rates it 5/10 and has been consistent, refuses PRN pain medication, denies SOB. IV on left AC saline, patent and intact, saline locked. No signs of distress. Right upper chest perma cath patent and intact. Will continue to monitor.
[2021-06-29 06:08] VITALS: BP 105/48
[2021-06-29] MEDS: PANTOPRAZOLE SODIUM 40 MG TABLET.DR PO SCH (06:56)
--- NOTE | 2021-06-29 07:02 | NUR ---
Patient slept through rest of shift. Alert and oriented x 3. Normal sinus rhythm on tele monitor HR: 78. On room air saturating 100%. Consistently rates chest pain at 5/10, refuses PRN pain medication, denies SOB. IV on left AC saline, patent and intact, saline locked. No signs of distress. All needs anticipated and met. Bed in the lowest position, bed alarm on, call light within reach.
[2021-06-29] MEDS: AMLODIPINE 10 MG TABLET PO SCH (09:00)
[2021-06-29] MEDS: METOPROLOL TARTRATE 25 MG TABLET PO SCH ×2 (09:00→20:36)
[2021-06-29] MEDS ORDERED: METOPROLOL TARTRATE 50 MG TABLET PO SCH (09:00)
[2021-06-29] MEDS ORDERED: ASPIRIN EC 81 MG TABLET.DR PO SCH (09:00)
[2021-06-29] MEDS: ASPIRIN 81 MG TAB.CHEW PO SCH (11:20)
[2021-06-29 11:59] VITALS: BP 116/69
[2021-06-29] MEDS ORDERED: METO25TA6 PO (12:36)
[2021-06-29 16:00] VITALS: BP 134/78
--- NOTE | 2021-06-29 17:30 | NUR ---
Pt is a/o x 4 presenting with sinus rhythm on telemetry. vitals have been stable 116/69 HR 83. saturates 97% on room air. Installed phone in pt's room to communicate with program manager. Comfort measures provided, call light within reach. Pt does not want to be bothered and wants to sleep.
[2021-06-29 20:00] VITALS: BP 125/87
[2021-06-30] VITALS: BP 127/88
--- NOTE | 2021-06-30 | NUR ---
Received pt awake on bed with no respiratory distress noted. He is alert and oriented x4, able to make needs known. Denies pain and discomfort at this time. VS WNL, due medications given on time and tolerated well. Pt doesn't want to be disturb throughout the night. All needs attended. Call light placed within reach. Frequent visual checks done. Will continue to monitor.
[2021-06-30 04:00] VITALS: BP 117/89
[2021-06-30] MEDS: PANTOPRAZOLE SODIUM 40 MG TABLET.DR PO SCH (06:05)
[2021-06-30 06:39] LABS: HEMATOCRIT 26.9 % (36.7-47.1); MEAN CORPUSCULAR HEMOGLOBIN 32.5 uug (23.8-33.4); MEAN CORPUSCULAR VOLUME 96.8 fL (73.0-96.2); PLATELET COUNT (AUTO) 228 K/uL (152-348)
[2021-06-30 07:08] LABS: CREATININE 3.5 mg/dL (0.6-1.3); MAGNESIUM 2.1 mg/dL (1.8-2.4); PHOSPHOROUS 3.4 mg/dL (2.5-4.9); POTASSIUM 4.3 mmol/L (3.5-5.1)
[2021-06-30 07:50] LABS: THYROID STIMULATING HORMONE 1.097 mIU/mL (0.358-3.740)
[2021-06-30 08:00] VITALS: BP 149/91
[2021-06-30] MEDS: AMLODIPINE 10 MG TABLET PO SCH (09:16)
[2021-06-30] MEDS: ASPIRIN 81 MG TAB.CHEW PO SCH (09:16)
[2021-06-30] MEDS: METOPROLOL TARTRATE 25 MG TABLET PO SCH (09:17)
--- NOTE | 2021-06-30 10:38 | NUR ---
Pt a/o x 4, cooperative with care. Pt is stable on room air. Notified DON of missing nephrology consult. Pt has not had hemodialysis for over 2 weeks since he moved from [place]. Comfort measures provided, call light within reach. Will continue to monitor.
--- NOTE | 2021-06-30 11:36 | NUR ---
Order for nephrology consult placed per MD. Pending consult to decide discharge plan.
[2021-06-30 12:15] VITALS: BP 151/91
--- NOTE | 2021-06-30 15:00 | NUR ---
pt left ama. notified. Pt was picked up by daughter, aware of risks of leaving against medical advice. Pt verbalized understanding. All belongings at hand, IV and ID removed. No signs of acute distress. Pt did not want to wait for nephrology consultation.
== END 2021-06-30 15:00 | disposition left against medical advice (07) | DRG 199 ==
LOC: ER 20:46 → TELE3 06-29 05:04 → MEDSURG3 06-30 10:25
PROVIDERS: ADMIT Student in an Organized Health Care Education/Training Program; ATTEND Student in an Organized Health Care Education/Training Program
DX: I16.0 Hypertensive urgency (principal); N18.6 End stage renal disease; R07.89 Other chest pain; I12.0 Hypertensive chronic kidney disease with stage 5 chronic kidney disease or end stage renal disease; F17.210 Nicotine dependence, cigarettes, uncomplicated; Z86.73 Personal history of transient ischemic attack (TIA), and cerebral infarction without residual deficits; Z20.822 Contact with and (suspected) exposure to COVID-19; Z99.2 Dependence on renal dialysis; Z91.15 Patient's noncompliance with renal dialysis; D64.9 Anemia, unspecified; F15.90 Other stimulant use, unspecified, uncomplicated; Z91.19 Patient's noncompliance with other medical treatment and regimen; Z98.890 Other specified postprocedural states
CPT/HCPCS: 36415; 70030-TC; 71045; 71250; 78580; 83735; 84100; 84443; 85025; 85730; 93005; 93307; A4663; A9540; G0378; J3490

== ENCOUNTER 2021-07-05 21:20 | Emergency (ER) | payer OTHER ==
[~2021-07-05] VITALS: Ht 177.8 cm; Wt 74.8 kg
[~2021-07-05 21:20] MED LIST changes: -ATOR20TA PO; -CHLO25TA13 GT; +METO25TA6 PO; -OXYC-128 PO
--- NOTE | 2021-07-05 22:04 | NUR ---
DR. CUEVAS AT BEDSIDE, MSE IN PROGRESS.
--- NOTE | 2021-07-05 22:17 | NUR ---
LAB AT BEDSIDE.
[2021-07-05 22:39] LABS: CREATININE 3.9 mg/dL (0.6-1.3); POTASSIUM 4.4 mmol/L (3.5-5.1)
[2021-07-05 22:39] LABS: *BILIRUBIN,URIN NEGATIVE (NEGATIVE); *BLOOD, URINE 3+ (NEGATIVE); *CLARITY,URINE CLOUDY (CLEAR); *KETONES,URINE NEGATIVE (NEGATIVE); *UROBILINOGEN,URINE 0.2 E.U./dl (NORMAL); LEUKOCYTE ESTERASE ,URINE NEGATIVE (NEGATIVE); NITRITE, URINE NEGATIVE (NEGATIVE); UGLUCOSE TRACE (NEGATIVE)
[2021-07-05 22:40] LABS: *COLOR,URINE BLOODY (YELLOW)
[2021-07-05 22:42] LABS: BACTERIA,URINE NONE SEEN /HPF (NONE SEEN); RBC,URINE TNTC /HPF (0-3); SQUAMOUS EPITHELIAL CELL,UR NONE SEEN /HPF (NONE SEEN); WBC,URINE 0-3 /HPF (0-3)
[2021-07-05 22:48] LABS: HEMATOCRIT 28.9 % (36.7-47.1); MEAN CORPUSCULAR HEMOGLOBIN 32.7 uug (23.8-33.4); MEAN CORPUSCULAR VOLUME 96.5 fL (73.0-96.2); PLATELET COUNT (AUTO) 212 K/uL (152-348)
[2021-07-05 22:57] LABS: BILIRUBIN,TOTAL 0.3 mg/dL (0.2-1.0); TOTAL PROTEIN, SERUM 7.8 g/dL (6.4-8.2)
[2021-07-05] MEDS ORDERED: LIDOCAINE 2% (UROJET) 10 ML JELLY MM ONE ×2 (23:15→23:21)
--- NOTE | 2021-07-06 00:15 | NUR ---
Patient discharged to home in stable condition. Written and verbal after care instructions given. Patient verbalizes understanding of instructions. Stressed follow up or return to ER for worsening s/s. Steady gait.
[2021-07-06 00:24] VITALS: BP 155/86
== END 2021-07-06 00:15 | disposition home or self-care (01) ==
LOC: ER 21:27
DX: D64.9 Anemia, unspecified (principal); R31.0 Gross hematuria; N18.9 Chronic kidney disease, unspecified; R03.0 Elevated blood-pressure reading, without diagnosis of hypertension; F17.210 Nicotine dependence, cigarettes, uncomplicated; Z86.73 Personal history of transient ischemic attack (TIA), and cerebral infarction without residual deficits; Z86.79 Personal history of other diseases of the circulatory system
CPT/HCPCS: 36415; 85025; 87086; A4217; A4663

== ENCOUNTER 2021-07-27 01:53 | Emergency (ER) | payer OTHER ==
[~2021-07-27] VITALS: Ht 177.8 cm; Wt 68.0 kg
--- NOTE | 2021-07-27 02:14 | NUR ---
PATIENT WALKED INTO ER C/O NONRADIATING CP WITH SOB THAT STARTED 3 DAYS AGO BUT WORSE IN THE LAST 1HR. PATIENT DESCRIBES PAIN 8/10 ACHING PAIN.
--- NOTE | 2021-07-27 02:48 | NUR ---
Dr. Herrera on bedside for MSE.
[2021-07-27 02:58] LABS: HEMATOCRIT 30.3 % (36.7-47.1); MEAN CORPUSCULAR VOLUME 95.9 fL (73.0-96.2); PLATELET COUNT (AUTO) 148 K/uL (152-348)
[2021-07-27] MEDS ORDERED: hydrALAZINE HCL 20 MG/1 ML VIAL IV ONE (03:00)
[2021-07-27] MEDS ORDERED: LABETALOL HCL 100 MG/20 ML VIAL IV ONE (03:00)
[2021-07-27 03:07] LABS: CARBON DIOXIDE 24 mmol/L (21-32); CHLORIDE 104 mmol/L (98-107); CREATININE 3.7 mg/dL (0.6-1.3); GLUCOSE 129 mg/dL (74-106); POTASSIUM 3.7 mmol/L (3.5-5.1); UREA NITROGEN, BLOOD 27 mg/dL (7-18)
[2021-07-27] MEDS ORDERED: hydrALAZINE HCL 20 MG/1 ML VIAL ONE (03:08)
[2021-07-27] MEDS ORDERED: LABETALOL HCL 100 MG/20 ML VIAL ONE (03:08)
[2021-07-27 03:22] LABS: ALANINE AMINOTRANSFERASE 8 U/L (16-63); ALKALINE PHOSPHATASE 94 U/L (50-136); ASPARTATE AMINOTRANSFERASE 7 U/L (15-37); BILIRUBIN,DIRECT 0.2 mg/dL (0.0-0.2); BILIRUBIN,TOTAL 0.5 mg/dL (0.2-1.0); TOTAL PROTEIN, SERUM 7.5 g/dL (6.4-8.2)
[2021-07-27] MEDS ORDERED: SWABABLE VALVE TRANSFER SET EA MC ONE (03:51)
[2021-07-27] MEDS ORDERED: IOHEXOL 350 100 ML INFUS..BTL ONE (03:52)
[2021-07-27] MEDS ORDERED: IV NORMAL SALINE 250 ML IV ONE (03:52)
--- NOTE | 2021-07-27 06:02 | NUR ---
Dr Herrera ay patient bedside.
--- NOTE | 2021-07-27 06:30 | NUR ---
Patient discharged to home in stable condition. Written and verbal after care instructions given. Patient verbalizes understanding of instructions. Stressed follow up or return to ER for worsening s/s. Patient ambulated fr the ER with steady gait. All belongings with patient.
[2021-07-27 06:34] VITALS: BP 158/111
== END 2021-07-27 06:35 | disposition home or self-care (01) ==
LOC: ER 01:55
DX: R07.89 Other chest pain (principal); N18.6 End stage renal disease; Z99.2 Dependence on renal dialysis; Z91.15 Patient's noncompliance with renal dialysis; Z86.73 Personal history of transient ischemic attack (TIA), and cerebral infarction without residual deficits; Z87.01 Personal history of pneumonia (recurrent); J43.9 Emphysema, unspecified; F17.200 Nicotine dependence, unspecified, uncomplicated; J90 Pleural effusion, not elsewhere classified; Z98.890 Other specified postprocedural states; R79.1 Abnormal coagulation profile; F15.11 Other stimulant abuse, in remission; Z20.822 Contact with and (suspected) exposure to COVID-19
CPT/HCPCS: 36415; 71045; 71250; 80048; 80076; 83880; 84484 ×2; 85025; 85379; 85730; 87426; 93005; 96374; 99285; J0360; A4663; J3490; J7050; Q9967

== ENCOUNTER 2021-08-13 23:37 | Emergency (ER) | payer OTHER ==
[~2021-08-13] VITALS: Ht 177.8 cm; Wt 83.9 kg
--- NOTE | 2021-08-13 23:45 | NUR ---
Dr. Pimentel at bedside for MSE.
[2021-08-14 00:21] LABS: HEMATOCRIT 28.5 % (36.7-47.1); MEAN CORPUSCULAR HEMOGLOBIN 30.9 uug (23.8-33.4); MEAN CORPUSCULAR VOLUME 94.1 fL (73.0-96.2); PLATELET COUNT (AUTO) 324 K/uL (152-348)
[2021-08-14 00:23] LABS: CARBON DIOXIDE 21 mmol/L (21-32); CHLORIDE 102 mmol/L (98-107); CREATININE 5.6 mg/dL (0.6-1.3); GLUCOSE 179 mg/dL (74-106); POTASSIUM 4.4 mmol/L (3.5-5.1); UREA NITROGEN, BLOOD 51 mg/dL (7-18)
[2021-08-14 00:29] LABS: ETHANOL < 3 MG/DL (0-0)
[2021-08-14 00:32] LABS: ALANINE AMINOTRANSFERASE 11 U/L (16-63); ALKALINE PHOSPHATASE 145 U/L (50-136); BILIRUBIN,DIRECT 0.2 mg/dL (0.0-0.2); BILIRUBIN,TOTAL 0.7 mg/dL (0.2-1.0); TOTAL PROTEIN, SERUM 7.1 g/dL (6.4-8.2)
[2021-08-14 00:33] LABS: ASPARTATE AMINOTRANSFERASE < 5 U/L (15-37)
[2021-08-14] MEDS ORDERED: ONDANSETRON 4 MG/2 ML VIAL IV ONE (00:45)
[2021-08-14] MEDS ORDERED: HYDROMORPHONE 1 MG/1 ML DISP.SYRIN IV ONE (00:45)
[2021-08-14 00:46] LABS: LIPASE 53 U/L (73-393)
[2021-08-14] MEDS ORDERED: ONDANSETRON 4 MG/2 ML VIAL ONE (00:52)
[2021-08-14] MEDS ORDERED: HYDROMORPHONE 1 MG/1 ML DISP.SYRIN ONE (00:53)
--- NOTE | 2021-08-14 01:05 | NUR ---
Xray at bedside.
[2021-08-14] MEDS ORDERED: FUROSEMIDE 40 MG/4 ML VIAL IV ONE (01:30)
[2021-08-14] MEDS ORDERED: FUROSEMIDE 40 MG/4 ML VIAL ONE (01:40)
--- NOTE | 2021-08-14 01:50 | NUR ---
Called [facility] transfer center, spoke to Nnamdi who states [facility] , [facility] and [facility] are at capacity.
--- NOTE | 2021-08-14 02:07 | NUR ---
Called [facility] transfer center, spoke with Genoveva, asked to have facesheet and clinicals faxed to , call back number is .
--- NOTE | 2021-08-14 02:19 | NUR ---
Called [facility], spoke with Emily, asked to have facesheet and clinicals faxed to .
--- NOTE | 2021-08-14 02:42 | NUR ---
Called [facility] transfer Center who requested to have clinical fax to .
[2021-08-14] MEDS ORDERED: NITROGLYCERIN IV 250 ML ONE (02:51)
--- NOTE | 2021-08-14 02:52 | NUR ---
Called [facility], spoke with Caron, asked to have face sheet and clinicals sent to .
[2021-08-14] MEDS ORDERED: AZITHROMYCIN IV 500 MG in IV DEXTROSE 5% 250 ML IV ONE (03:00)
[2021-08-14] MEDS ORDERED: NITROGLYCERIN IV 250 ML IV PRN (03:00)
[2021-08-14] MEDS ORDERED: CEFTRIAXONE 1 G in IV DEXTROSE 5% 50 ML IV ONE (03:00)
[2021-08-14 03:14] LABS: *BILIRUBIN,URIN NEGATIVE (NEGATIVE); *CLARITY,URINE CLEAR (CLEAR); *COLOR,URINE YELLOW (YELLOW); *KETONES,URINE NEGATIVE (NEGATIVE); *UROBILINOGEN,URINE 0.2 E.U./dl (NORMAL); LEUKOCYTE ESTERASE ,URINE NEGATIVE (NEGATIVE); NITRITE, URINE NEGATIVE (NEGATIVE); PH,URINE 5.5 (5.0-8.0); UGLUCOSE NEGATIVE (NEGATIVE)
[2021-08-14 03:21] LABS: *BLOOD, URINE TRACE (NEGATIVE)
[2021-08-14 03:23] LABS: BACTERIA,URINE NONE SEEN /HPF (NONE SEEN); SQUAMOUS EPITHELIAL CELL,UR FEW /HPF (NONE SEEN); WBC,URINE 0-3 /HPF (0-3)
[2021-08-14] MEDS ORDERED: CEFTRIAXONE /D5W 50ML IVPB **ER PYXIS IV ONE (03:23)
[2021-08-14 03:27] LABS: *AMPHETAMINE, URINE POSITIVE (NEGATIVE); *CANNABINOID, URINE NEGATIVE (NEGATIVE); *COCCAINE, URINE NEGATIVE (NEGATIVE); *OPIATE, URINE NEGATIVE (NEGATIVE); *PHENCYCLIDINE SCREEN,URINE NEGATIVE (NEGATIVE)
--- NOTE | 2021-08-14 03:33 | NUR ---
Sherine from [facility] Transfer center called back and stated "we are at capacity at this time." Unable to accept patient.
--- NOTE | 2021-08-14 03:41 | NUR ---
Called [facility], spoke with Saleem, asked to fax .
--- NOTE | 2021-08-14 04:00 | NUR ---
Awais from [facility] admitting called back and stated unable to directly admit patient without prior authorizations from insurance company. Once auth from insurance is obtain they request it to be faxed to .
[2021-08-14] MEDS ORDERED: ACETAMINOPHEN ES 500 MG TABLET ONE (04:07)
[2021-08-14] MEDS ORDERED: AZITHROMYCIN 500MG/ D5W 250ML IVPB **ER PYXIS ONLY IV ONE (04:09)
[2021-08-14] MEDS ORDERED: FUROSEMIDE 20 MG/2 ML VIAL ONE (04:29)
[2021-08-14] MEDS ORDERED: FUROSEMIDE 20 MG/2 ML VIAL IV ONE (04:30)
--- NOTE | 2021-08-14 04:32 | NUR ---
Received call back from [place], no beds available.
--- NOTE | 2021-08-14 05:05 | NUR ---
D/c Nitroglycerin IV drip.
--- NOTE | 2021-08-14 05:09 | NUR ---
Dr. Pimentel speaking with [facility] MD
--- NOTE | 2021-08-14 05:50 | NUR ---
Pt out of ER for CT. Accompanied patient to CT.
[2021-08-14] MEDS ORDERED: IV NORMAL SALINE 250 ML IV ONE (06:02)
[2021-08-14] MEDS ORDERED: IOHEXOL 350 100 ML INFUS..BTL ONE (06:02)
[2021-08-14] MEDS ORDERED: SWABABLE VALVE TRANSFER SET EA MC ONE (06:02)
--- NOTE | 2021-08-14 06:11 | NUR ---
Pt back to ER from CT.
--- NOTE | 2021-08-14 07:24 | NUR ---
Recieved pt in bed, sleeping, NAD noted at this time, awaiting result of Ct scan.
--- NOTE | 2021-08-14 08:08 | NUR ---
Placed a call to [facility] transfer [place], and spoke to Grey CABA, per request CTA results faxed to them. Pt is awake a/o x4 and speaking w/ Dr Armendariz regarding plan of care.
[2021-08-14 09:13] VITALS: BP 143/89
--- NOTE | 2021-08-14 09:13 | NUR ---
IV removed. Catheter intact and site benign. Pressure and 4x4 gauze applied to site. No bleeding noted.
== END 2021-08-14 10:04 | disposition left against medical advice (07) ==
LOC: ER 23:44
DX: R07.9 Chest pain, unspecified (principal); J81.1 Chronic pulmonary edema; I71.03 Dissection of thoracoabdominal aorta; N17.9 Acute kidney failure, unspecified; N18.9 Chronic kidney disease, unspecified; R00.0 Tachycardia, unspecified; R91.8 Other nonspecific abnormal finding of lung field; Z87.01 Personal history of pneumonia (recurrent); F17.210 Nicotine dependence, cigarettes, uncomplicated; Z20.822 Contact with and (suspected) exposure to COVID-19; D64.9 Anemia, unspecified; D72.829 Elevated white blood cell count, unspecified; J43.9 Emphysema, unspecified; R59.0 Localized enlarged lymph nodes; I13.10 Hypertensive heart and chronic kidney disease without heart failure, with stage 1 through stage 4 chronic kidney disease, or unspecified chronic kidney disease; F15.90 Other stimulant use, unspecified, uncomplicated; Z53.29 Procedure and treatment not carried out because of patient's decision for other reasons
CPT/HCPCS: 36415; 71045; 71275; 74174; 76775; 80048; 80076; 80307; 80320; 81001; 83605; 83690; 83880; 84484 ×2; 85025; 85730; 87426; 93005; 96365 ×2; 96366; 96367; 96375 ×2; 99285; J0456; J0696; J1170; J1940 ×2; J2405; J3490; Q9967; A4663; A9150; G0480; J7050

== ENCOUNTER 2021-08-21 06:19 | Inpatient (IN) | payer OTHER ==
[~2021-08-21] VITALS: Ht 177.8 cm; Wt 74.4 kg
[2021-08-21] MEDS ORDERED: CLONIDINE HCL 0.1 MG TABLET PO ONE (06:45)
[2021-08-21] MEDS ORDERED: DILTIAZEM HCL 25 MG IV IV ONE (07:00)
--- NOTE | 2021-08-21 07:07 | NUR ---
Report given to Reyna moffett.
[2021-08-21 07:08] LABS: MEAN CORPUSCULAR HEMOGLOBIN 31.9 uug (23.8-33.4); MEAN CORPUSCULAR VOLUME 94.7 fL (73.0-96.2); PLATELET COUNT (AUTO) 257 K/uL (152-348)
[2021-08-21] MEDS ORDERED: DILTIAZEM HCL 25 MG IV ONE (07:11)
[2021-08-21] MEDS ORDERED: CLONIDINE HCL 0.1 MG TABLET ONE (07:11)
[2021-08-21 07:23] LABS: CARBON DIOXIDE 22 mmol/L (21-32); CHLORIDE 105 mmol/L (98-107); CREATININE 4.7 mg/dL (0.6-1.3); GLUCOSE 139 mg/dL (74-106); POTASSIUM 3.3 mmol/L (3.5-5.1); UREA NITROGEN, BLOOD 44 mg/dL (7-18)
--- NOTE | 2021-08-21 07:24 | NUR ---
Received pt. AAOx4. feeling short of breath. saturation of 96% on RA. sbp of 166/110. RR 14 labored pt. noted to be cold mottled bilateral upper and lower extremities. Patient stated he had HD 10 weeks ago.
[2021-08-21 07:25] LABS: MAGNESIUM 2.2 mg/dL (1.8-2.4)
[2021-08-21] MEDS ORDERED: NITROGLYCERIN 0.4 MG/TAB BOTTLE SL ONE ×2 (07:30→07:42)
[2021-08-21] MEDS ORDERED: ASPIRIN 325 MG TABLET ONE (07:41)
[2021-08-21 07:45] LABS: ALANINE AMINOTRANSFERASE 44 U/L (16-63); ALKALINE PHOSPHATASE 309 U/L (50-136); ASPARTATE AMINOTRANSFERASE 26 U/L (15-37); BILIRUBIN,DIRECT 0.2 mg/dL (0.0-0.2); BILIRUBIN,TOTAL 0.4 mg/dL (0.2-1.0); TOTAL PROTEIN, SERUM 6.2 g/dL (6.4-8.2)
[2021-08-21 07:48] LABS: THYROID STIMULATING HORMONE 3.086 mIU/mL (0.358-3.740)
--- NOTE | 2021-08-21 08:09 | NUR ---
Pt refused CTA, Dr Ziegler made aware.
[2021-08-21] MEDS ORDERED: IOHEXOL 350 100 ML INFUS..BTL ONE (08:21)
[2021-08-21] MEDS ORDERED: IV NORMAL SALINE 250 ML IV ONE (08:21)
[2021-08-21] MEDS ORDERED: SWABABLE VALVE TRANSFER SET EA MC ONE (08:21)
[2021-08-21] MEDS ORDERED: ASPIRIN EC 325 MG TABLET.DR PO SCH (09:00)
--- NOTE | 2021-08-21 09:00 | NUR ---
A call from pt's Ms. Bridges at this time she was updated about her treatment and care plan. She left her phone number .
[2021-08-21] MEDS ORDERED: LABETALOL HCL 100 MG/20 ML VIAL IV ONE (09:15)
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
[2021-08-21] MEDS ORDERED: LABETALOL HCL 100 MG/20 ML VIAL ONE (09:20)
--- NOTE | 2021-08-21 09:42 | NUR ---
AVINASH PICKARD spoke to Dr Salguero for Tele admit. Placed a call to Dr Reena covarrubias.
[2021-08-21] MEDS ORDERED: LORAZEPAM 2 MG/1 ML VIAL IV ONE (09:45)
[2021-08-21] MEDS ORDERED: LORAZEPAM 2 MG/1 ML VIAL ONE (09:50)
--- NOTE | 2021-08-21 10:00 | NUR ---
Call for a telemetry bed spoke with Jaja chatman R.N. and as stated "I'll call back when nurse to admit pt. available"
--- NOTE | 2021-08-21 13:09 | NUR ---
HR 72 147/92 RR16.
--- NOTE | 2021-08-21 14:14 | NUR ---
HR of 87 sbp of 145/65. RR18, saturation of 96% on RA.
--- NOTE | 2021-08-21 14:14 | NUR ---
Telephone report given to Yoselin Floyd all systems covered and all questions answered.
--- NOTE | 2021-08-21 14:57 | NUR ---
Pt. taken up to room 320 got situated in bed an left in bed resting R.N. notified of pt's arrival.
[2021-08-21 15:00] VITALS: BP 99/47
--- NOTE | 2021-08-21 15:27 | NUR ---
56 YEAR OLD MALE RECEIVED TO ROOM 320 FOR SOB .CALL LIGHT WITH IN REACH ,ORIENT THE PT TO ROOM MD NOTIFIED FOR ADMISSION ORDERS
[2021-08-21 16:00] VITALS: BP 99/47
[2021-08-21] MEDS ORDERED: ONDANSETRON 4 MG/2 ML VIAL IV PRN (18:15)
[2021-08-21] MEDS ORDERED: MORPHINE SULFATE 2 MG/1 ML DISP.SYRIN IV PRN (18:15)
[2021-08-21] MEDS ORDERED: ACETAMINOPHEN 325 MG TABLET PO PRN (18:15)
--- NOTE | 2021-08-21 19:30 | NUR ---
Patient awake seated in the bed, on oxygen 2liters per minute, complain of sob of breath when activiity, instructed to rest in between activities, Patient on tele monitor A flutter under the care of Dr Sargent, bp elevated, oxygen sat wnl, hr is wnl, will continue to monitor.
[2021-08-21 20:00] VITALS: BP 185/127
[2021-08-21] MEDS ORDERED: AMIODARONE HCL 200 MG TABLET PO SCH (21:00)
[2021-08-21] MEDS ORDERED: METOPROLOL TARTRATE 25 MG TABLET PO SCH (21:00)
[2021-08-21] MEDS: TEMAZEPAM 15 MG CAPSULE PO PRN (21:13)
[2021-08-21] MEDS: FLUTICASONE/VILANTEROL 1 EACH BLST.W.DEV INH SCH (22:19)
[2021-08-21] MEDS: ALBUTEROL SULFATE 2.5 MG/3 ML NEBU NEB PRN (22:40)
[2021-08-21] MEDS: IPRATROPIUM BROMIDE 0.5 MG/2.5 ML NEBU NEB PRN (22:40)
--- NOTE | 2021-08-21 22:42 | NUR ---
Notify Dr Krishnamurthy BP elevated 185/109 even after BP, complaining of sob, sat wnl, RT giving breathing treatment as ordered. Dr Krishnamurthy ordered to follow up with Dr Lindo group, and has new order. Notify Dr Lindo regarding the consult.
[2021-08-21] MEDS: hydrALAZINE HCL 50 MG TABLET PO SCH (23:29)
--- NOTE | 2021-08-21 23:31 | NUR ---
Patient has episode of bradycardia when to asystole for 10 seconds, but went back to a flutter, awake, oxygen sat 100% at 5 liters NC, patient alert oriented, BP still elevated but asymptomatic, no sob no chest pain, difficulty breathing BNP elevated, Patient assisted back to bed, HOB elevated 45 degrees, will continue to monitor.
[2021-08-22] VITALS: BP 183/98
--- NOTE | 2021-08-22 02:15 | NUR ---
Patient assisted to the toilet for bladder eliminations, complain of shortness of breath, place on oxygen mask at 5liters tolerate well, kept hob elevated, oxygen sat 98%, instructed to calm down and try to relax, able to follow, went back to sleep, cont to monitor.
[2021-08-22 04:00] VITALS: BP 147/106
[2021-08-22] MEDS: PANTOPRAZOLE SODIUM 40 MG TABLET.DR PO SCH (05:58)
[2021-08-22] MEDS: hydrALAZINE HCL 50 MG TABLET PO SCH ×3 (05:58→22:12)
[2021-08-22 07:08] LABS: HEMATOCRIT 24.2 % (36.7-47.1); MEAN CORPUSCULAR HEMOGLOBIN 32.2 uug (23.8-33.4); MEAN CORPUSCULAR VOLUME 94.9 fL (73.0-96.2); PLATELET COUNT (AUTO) 252 K/uL (152-348)
--- NOTE | 2021-08-22 07:11 | NUR ---
Patient awake, still on oxygen mask at 5 liters sat 100%, no sob noted, said "he's feeling better", asked him if he needs breathing treatment, stated later, patient still voiding, assisted with toileting. BP is trending down, asymptomatic, no nausea no vomiting, went back to sleep, endorsed to next shift to follow up with Dr. Lindo consult, cont to monitor.
--- NOTE | 2021-08-22 07:26 | NUR ---
BP 147/96 at this time, no sob no chest pain, sat 100% at 5 liters, endorse to next shift.
[2021-08-22 07:46] LABS: BILIRUBIN,TOTAL 0.4 mg/dL (0.2-1.0); CREATININE 4.8 mg/dL (0.6-1.3); MAGNESIUM 2.2 mg/dL (1.8-2.4); PHOSPHOROUS 4.6 mg/dL (2.5-4.9); POTASSIUM 4.8 mmol/L (3.5-5.1); TOTAL PROTEIN, SERUM 6.3 g/dL (6.4-8.2)
--- NOTE | 2021-08-22 08:50 | NUR ---
Received call from Tatyana from nuclear medicine re pulmonary vq scan. 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 Wants to talk to . Phone numbers home [phone] cell [phone] provided to RICHARD Contreras and acknowledged. Charge nurse also made aware.
[2021-08-22] MEDS: AMLODIPINE 10 MG TABLET PO SCH (09:18)
[2021-08-22] MEDS: FLUTICASONE/VILANTEROL 1 EACH BLST.W.DEV INH SCH (09:18)
[2021-08-22] MEDS: ASPIRIN 81 MG TAB.CHEW PO SCH (09:18)
--- NOTE | 2021-08-22 09:44 | NUR ---
Tatyana from [facility] spoke with raz Morelos on hold for now.
--- NOTE | 2021-08-22 10:23 | NUR ---
helper [employer] ke rounding at this time updated on condition no new orders received.
--- NOTE | 2021-08-22 10:57 | NUR ---
RN here for hemodialysis
[2021-08-22 11:56] VITALS: BP 134/79
--- NOTE | 2021-08-22 12:36 | NUR ---
Pt states he's a little anxious and requested for anti-anxiety. RECEIVING ASSOCIATE STORE Ben made aware with new order.
[2021-08-22] MEDS ORDERED: LORAZEPAM 1 MG TABLET PO ONE (12:45)
--- NOTE | 2021-08-22 14:23 | NUR ---
Finished with hemodialysis output 2L. Patient tolerated procedure vs 121/74 hr 84.
[2021-08-22 16:31] VITALS: BP 142/77
--- NOTE | 2021-08-22 16:54 | NUR ---
a flutter controlled on telemonitor hr 78. no acute distress.
--- NOTE | 2021-08-22 19:30 | NUR ---
Patient alert oriented, no sob no chest pain, tele monitor Aflutter controlled, Patient has no complain of short of breath, S/P dialysis tolerate well, v/s stable, still on oxygen via mask cont to monitor.
[2021-08-22 20:15] VITALS: BP 123/64
--- NOTE | 2021-08-22 22:00 | NUR ---
Patient was put on CPAP by RT tolerate well, patient cooperative with care, no complain of sob, no chest pain. BP stable wnl. cont to monitor.
[2021-08-22] MEDS: IPRATROPIUM BROMIDE 0.5 MG/2.5 ML NEBU NEB PRN (22:05)
[2021-08-22] MEDS: ALBUTEROL SULFATE 2.5 MG/3 ML NEBU NEB PRN (22:05)
[2021-08-23 00:03] VITALS: BP 114/69
--- NOTE | 2021-08-23 00:30 | NUR ---
Patient was awake wanted to the toilet, cpap was removed, then when RT tries to put back the CPAP patient refused, stated he is uncomfortable, prefer to the o2 mask at 5 liters. patient alert oriented, able make his needs.
--- NOTE | 2021-08-23 01:14 | NUR ---
Taken off patient from CPAP at 0030 per patient request and placed patient on O2 via simple mask at 6lpm. Educated patient on the importance of CPAP, patient stated understanding but still refused CPAP. Patient's SpO2>92% on O2. Will continue to monitor. Nurse aware
[2021-08-23] MEDS: TEMAZEPAM 15 MG CAPSULE PO PRN (02:46)
[2021-08-23 04:18] VITALS: BP 131/89
[2021-08-23] MEDS: PANTOPRAZOLE SODIUM 40 MG TABLET.DR PO SCH (06:19)
[2021-08-23] MEDS: hydrALAZINE HCL 50 MG TABLET PO SCH ×2 (06:21→14:00)
--- NOTE | 2021-08-23 06:36 | NUR ---
Patient asleep but arousable, cooperative with medication regimen, no complain of pain, no sob noted, BP stable, no complain of pain, still on oxygen 5 liters saturation wnl. cont to monitor.
[2021-08-23 07:30] LABS: CREATININE 3.7 mg/dL (0.6-1.3); POTASSIUM 3.8 mmol/L (3.5-5.1)
[2021-08-23 07:35] LABS: HEMATOCRIT 22.6 % (36.7-47.1); MEAN CORPUSCULAR HEMOGLOBIN 32.3 uug (23.8-33.4); PLATELET COUNT (AUTO) 180 K/uL (152-348)
--- NOTE | 2021-08-23 08:00 | NUR ---
AWAKE ALERT AND VERBALLY RESPONSIVE, TX PLAN REINFORCED . PATIENT SAID 'I WANT TO GO HOME I DONT WANT HD'. HOSPITALIST MADE AWARE.
[2021-08-23 08:06] LABS: HEPATITIS B SURFACE AG Negative (Negative)
[2021-08-23 08:14] LABS: ABG BASE EXCESS -2.9 mmol/L; ABG HCO3 19.5 mmol/L; ABG PCO2 25.7 mmHg (35.0-45.0); ABG PH 7.499 (7.350-7.450); ABG PO2 65.1 mmHg (75.0-100.0); ABG SITE LEFT RADIAL; ABG TOTAL HEMOGLOBIN 8.7 G/dL (13.5-18.0); COHb 0.3 % (0.5-1.5); MetHb 0.5 % (0.0-1.5); O2Hb 92.4 % (94.0-97.0); VENT MODE ROOM AIR
[2021-08-23] MEDS: ASPIRIN 81 MG TAB.CHEW PO SCH (09:11)
[2021-08-23] MEDS: AMLODIPINE 10 MG TABLET PO SCH (09:11)
[2021-08-23] MEDS: FLUTICASONE/VILANTEROL 1 EACH BLST.W.DEV INH SCH (09:12)
--- NOTE | 2021-08-23 10:00 | NUR ---
HD TELEVISION NEWS ANCHOR CAME IN , ASSESS PT FOR HD
--- NOTE | 2021-08-23 10:20 | NUR ---
HEMODIALYSIS STARTED AT BEDSIDE AFTER XANAX PER PATIENT REQUEST.
[2021-08-23] MEDS ORDERED: ALPRAZOLAM 0.5 MG TABLET PO PRN (10:30)
--- NOTE | 2021-08-23 11:10 | NUR ---
HEMODIALYSIS STOP PER PATIENT REQUEST, WANTS TO GO HOME HOSPITALIST NOTIFIED AND SAID PATIENT CAN GO AMA IF INSIST.
[2021-08-23 12:00] VITALS: BP 121/74
--- NOTE | 2021-08-23 12:17 | NUR ---
RECEIVED A CALL FROM LUCIA SAYING NOT TO SEND THE PATIENT HOME FOR NOW. LUCIA JUST SPOKE WITH PATIENT AND TELLING NOT TO DISCHARGE THE PATIENT BECAUSE ACCORDING TO PATIENT HE'S GOING TO KILL HIMSELF. CASE MANGER NOTIFIED AND LKED TO SO WITH SOCIAL SERVICE. PATIENT IS CLOSELY MONITORED RIGHT NOW.TILL FURTHER ORDERS
--- NOTE | 2021-08-23 12:38 | NUR ---
DEVELOPMENTAL MATHEMATICS INSTRUCTOR IN ROOM VERIFIED SUICIDAL THOUGHT AND PATIENT SAID 'NO I AM NOT GOING TO KILL MYSELF, I JUST WANT TO GO HOME'
--- NOTE | 2021-08-23 13:18 | NUR ---
PATIENT WENT HOME AMA.
== END 2021-08-23 13:18 | disposition left against medical advice (07) | DRG 194 ==
LOC: ER 06:22 → TELE3 14:33
PROVIDERS: ADMIT Internal Medicine; ATTEND Nurse Practitioner Acute Care
PROC: 5A1D70Z Performance of Urinary Filtration, Intermittent, Less than 6 Hours Per Day (ICD-10-PCS; principal; 2021-08-22)
DX: I13.2 Hypertensive heart and chronic kidney disease with heart failure and with stage 5 chronic kidney disease, or end stage renal disease (principal); J96.01 Acute respiratory failure with hypoxia; I26.99 Other pulmonary embolism without acute cor pulmonale; N18.6 End stage renal disease; D63.8 Anemia in other chronic diseases classified elsewhere; I48.92 Unspecified atrial flutter; Z91.15 Patient's noncompliance with renal dialysis; F15.10 Other stimulant abuse, uncomplicated; F17.210 Nicotine dependence, cigarettes, uncomplicated; G89.4 Chronic pain syndrome; I16.9 Hypertensive crisis, unspecified; Z86.73 Personal history of transient ischemic attack (TIA), and cerebral infarction without residual deficits; Z99.2 Dependence on renal dialysis; J44.9 Chronic obstructive pulmonary disease, unspecified; R73.9 Hyperglycemia, unspecified; G47.33 Obstructive sleep apnea (adult) (pediatric); Z20.822 Contact with and (suspected) exposure to COVID-19; I48.91 Unspecified atrial fibrillation; Z91.19 Patient's noncompliance with other medical treatment and regimen; Z98.890 Other specified postprocedural states; I50.33 Acute on chronic diastolic (congestive) heart failure; F15.11 Other stimulant abuse, in remission
CPT/HCPCS: 36415; 36600; 71045; 83550; 83735; 84100; 84443; 84484; 85025; 85730; 86706; 87340; 90937; 93005; 94660; 94664; A4663; G0378; J2060; J2270; J3490; J3590; J7050; Q9967

== ENCOUNTER 2021-08-31 03:04 | Inpatient (IN) | payer OTHER ==
[~2021-08-31] VITALS: Ht 177.8 cm; Wt 72.6 kg
[2021-08-31] MEDS ORDERED: CLONIDINE HCL 0.2 MG TABLET PO ONE (03:30)
[2021-08-31] MEDS ORDERED: hydrALAZINE HCL 20 MG/1 ML VIAL IV ONE (03:30)
--- NOTE | 2021-08-31 03:30 | NUR ---
Patient came due to SOB x 1 and chest pain with a pain scale of 8/10. NAD. No labored breathing noted. Will continue to monitor.
--- NOTE | 2021-08-31 03:30 | NUR ---
Xray at bedside c/o tech.
--- NOTE | 2021-08-31 03:35 | NUR ---
AVINASH Pablo for MSE.
[2021-08-31] MEDS ORDERED: hydrALAZINE HCL 20 MG/1 ML VIAL ONE (03:41)
[2021-08-31] MEDS ORDERED: CLONIDINE HCL 0.2 MG TABLET ONE (03:41)
--- NOTE | 2021-08-31 03:45 | NUR ---
Patient will be placed on Room 327.
--- NOTE | 2021-08-31 04:15 | NUR ---
Called [employer] [facility] and paged for Epic panel. Awaiting for Kush SOFT SUGAR SUPERVISOR national park tour guide to call back.
[2021-08-31 04:17] LABS: HEMATOCRIT 24.8 % (36.7-47.1); MEAN CORPUSCULAR HEMOGLOBIN 30.7 uug (23.8-33.4); MEAN CORPUSCULAR VOLUME 92.6 fL (73.0-96.2); PLATELET COUNT (AUTO) 197 K/uL (152-348)
--- NOTE | 2021-08-31 04:19 | NUR ---
Covid swab done and sent to lab.
[2021-08-31 04:25] LABS: CREATININE 4.2 mg/dL (0.6-1.3); POTASSIUM 4.1 mmol/L (3.5-5.1)
--- NOTE | 2021-08-31 04:35 | NUR ---
Called [employer] [facility] and paged Olegario Currie NP. Awaiting for callback.
[2021-08-31 04:38] LABS: BILIRUBIN,DIRECT 0.2 mg/dL (0.0-0.2); BILIRUBIN,TOTAL 0.5 mg/dL (0.2-1.0); TOTAL PROTEIN, SERUM 6.7 g/dL (6.4-8.2)
--- NOTE | 2021-08-31 04:49 | NUR ---
MRSA swab done.
[2021-08-31] MEDS ORDERED: ACETAMINOPHEN 325 MG TABLET PO PRN (05:00)
[2021-08-31] MEDS ORDERED: ONDANSETRON 4 MG/2 ML VIAL IV PRN (05:00)
[2021-08-31] MEDS ORDERED: REMEDY ESSENTIAL ZINC PASTE 113 GM TP PRN (05:00)
--- NOTE | 2021-08-31 05:00 | NUR ---
Patient will be transferred to Room 330.
--- NOTE | 2021-08-31 06:00 | NUR ---
Report given to GERTRUDIS Avalos.
--- NOTE | 2021-08-31 06:10 | NUR ---
Patient transferred to Room 330 via gurney accompanied by 1 staff member, on NC @2LPM via O2 tank, without any incident. Belongings with patient. [employer]. ALYX.
--- NOTE | 2021-08-31 07:30 | NUR ---
Received this new admission from ER, came in previous shift. Routine admission care rendered. Alert, oriented x 4, generalized weakness. Noted shortness of breath. O2 at 2L/NC with O2 sat of 99%. Placed a call to Dr. Rush for renal consult and hemodialysis schedule.
[2021-08-31] MEDS: hydrALAZINE HCL 50 MG TABLET PO SCH ×3 (07:45→21:19)
[2021-08-31] MEDS ORDERED: METOLAZONE 2.5 MG TABLET PO ONE (08:15)
[2021-08-31] MEDS ORDERED: FUROSEMIDE 40 MG/4 ML VIAL IV ONE (09:10)
[2021-08-31 09:30] VITALS: BP 150/100
[2021-08-31] MEDS: ASPIRIN 81 MG TAB.CHEW PO SCH (09:35)
[2021-08-31] MEDS: AMLODIPINE 10 MG TABLET PO SCH (09:38)
--- NOTE | 2021-08-31 12:00 | NUR ---
Eating lunch. Not in distress.
[2021-08-31 15:34] VITALS: BP 131/87
[2021-08-31] MEDS ORDERED: LORAZEPAM 2 MG/1 ML VIAL IV ONE (16:15)
--- NOTE | 2021-08-31 16:43 | NUR ---
Hemodialysis started with consent signed by patient. Ativan given as ordered.
--- NOTE | 2021-08-31 18:14 | NUR ---
Hemodialysis done with 2 L output. Patient accidentally pulled out IV access. Will reinsert. Patient eating dinner.
--- NOTE | 2021-08-31 19:30 | NUR ---
Received patient lying in bed. AAOx4. In no acute distress. Denies any pain or SOB. Patient reported feeling much better than when he arrived and after dialysis. NSR on tele with HR of 91/min. IV site on right FA intact and patent. Huber cath on right chest area with dressing dry and clean. Needs assessed and attended to. Safety measure initiated and call light within reached. Addendum: 08/31/21 at 9349 by KEELEY LEE RN Huber cath on left chest area
[2021-08-31 20:00] VITALS: BP 152/81
[2021-08-31] MEDS: FUROSEMIDE 40 MG/4 ML VIAL IV SCH (20:07)
[2021-08-31] MEDS ORDERED: AMIODARONE HCL 200 MG TABLET PO SCH (21:00)
[2021-09-01] VITALS: BP 127/80
[2021-09-01 04:30] VITALS: BP 127/80
[2021-09-01] MEDS: hydrALAZINE HCL 50 MG TABLET PO SCH ×3 (05:44→23:54)
[2021-09-01 06:21] LABS: HEMATOCRIT 25.7 % (36.7-47.1); MEAN CORPUSCULAR HEMOGLOBIN 30.7 uug (23.8-33.4); MEAN CORPUSCULAR VOLUME 91.8 fL (73.0-96.2); PLATELET COUNT (AUTO) 191 K/uL (152-348)
[2021-09-01 06:30] LABS: BILIRUBIN,TOTAL 0.6 mg/dL (0.2-1.0); CREATININE 3.6 mg/dL (0.6-1.3); MAGNESIUM 1.9 mg/dL (1.8-2.4); PHOSPHOROUS 3.8 mg/dL (2.5-4.9); POTASSIUM 3.8 mmol/L (3.5-5.1); TOTAL PROTEIN, SERUM 6.7 g/dL (6.4-8.2)
--- NOTE | 2021-09-01 06:40 | NUR ---
Patient slept during the night. In no acute distress. No complain of pain or SOB. NSR on tele with HR of 82/min. IV site on right FA intact and patent. Huber cath on right chest area with dressing dry and clean. Needs attended to and met. Safety measure maintained and call light within reached.
[2021-09-01] MEDS: ASPIRIN 81 MG TAB.CHEW PO SCH (09:41)
[2021-09-01] MEDS: FUROSEMIDE 40 MG/4 ML VIAL IV SCH ×2 (09:42→21:00)
[2021-09-01] MEDS: AMLODIPINE 10 MG TABLET PO SCH (09:52)
[2021-09-01 12:00] VITALS: BP 120/80
[2021-09-01] MEDS: SOD FERRIC GLUC COMPLX/SUCROSE 125 MG in IV NORMAL SALINE 100 ML IV SCH (14:51)
[2021-09-01 16:30] VITALS: BP 128/78
[2021-09-01] MEDS: LORAZEPAM 2 MG/1 ML VIAL IV PRN (17:57)
--- NOTE | 2021-09-01 19:10 | NUR ---
Pt had hemodialysis, 2 L removed. Ativan administered during dialysis for anxiousness. Pt tolerated HD well.
[2021-09-01 20:47] VITALS: BP 110/62
--- NOTE | 2021-09-01 22:00 | NUR ---
PATIENT ALERT ORIENTED, NO SOB NO CHEST PAIN, TELE MONITOR SINUS RHYTHM, NO COMPLAIN OF PAIN, ON 1LPM OXYGEN, PERMA CATH ON LEFT CHEST, DRESSING INTACT, ON LASIX VOIDING WELL, CONT TO MONITOR.
[2021-09-02 00:20] VITALS: BP 103/67
[2021-09-02 04:46] VITALS: BP 131/73
[2021-09-02] MEDS: hydrALAZINE HCL 50 MG TABLET PO SCH ×2 (05:07→13:58)
--- NOTE | 2021-09-02 05:51 | NUR ---
PATIENT ALERT ORIENTED, NO SOB NO CHEST PAIN, BP STABLE, TELE MONITOR SINUS RHYTHM AT THIS TIME, CONT TO MONITOR.
[2021-09-02] MEDS: LORAZEPAM 2 MG/1 ML VIAL IV PRN (08:02)
--- NOTE | 2021-09-02 08:15 | NUR ---
DIALYSIS STARTED ORDERED PATIENT IS ALERT AND ORIENTED DENIES DISCOMFORTS AT THIS TIME RIGHT CHEST PERMA CATH REMAINS INTACT CALL LIGHTS AND PERSONAL BELONGINGS ARE WITHIN EASY REACH AT THIS TIME WILL CONTINUE TO OBSERVE.
[2021-09-02 08:42] LABS: CREATININE 3.3 mg/dL (0.6-1.3)
--- NOTE | 2021-09-02 10:35 | NUR ---
DIALYSIS COMPLETED ORDERED AND 2000 ML WAS REMOVED PATIENT TOLERATED WELL
[2021-09-02] MEDS: ASPIRIN 81 MG TAB.CHEW PO SCH (10:37)
[2021-09-02] MEDS: FUROSEMIDE 40 MG/4 ML VIAL IV SCH (10:38)
[2021-09-02] MEDS: AMLODIPINE 10 MG TABLET PO SCH (10:40)
[2021-09-02] MEDS ORDERED: POTASSIUM CHLORIDE 20 MEQ TAB.PRT.SR PO ONE (11:00)
[2021-09-02 12:00] VITALS: BP 110/66
[2021-09-02] MEDS: SOD FERRIC GLUC COMPLX/SUCROSE 125 MG in IV NORMAL SALINE 100 ML IV SCH (13:54)
--- NOTE | 2021-09-02 14:30 | NUR ---
PATIENT STATED WANTS TO LEAVE [facility]INST [facility] CALLED DR MITCHELL NOTIFIED HIM WITH NO NEW ORDERS AT THIS TIME.
--- NOTE | 2021-09-02 14:40 | NUR ---
PATIENT SIGNED THE AGAINST [facility]ICAL ADV[facility] FORM AND LEFT THE HOSPITAL STATED WILL BE PICKED UP BY HIS DAUGHTER WITH ALL HIS PERSONAL BELONGINGS HEPLOCK AND TELE BOX REMOVED.STATED DID NOT WANT ANY PAPERS BUT WAS INSTRUCTED TO FOLLOW UP WITH HIS PRIMARY DOCTOR AND TO FOLLOW UP FOR DIALYSIS AND HE EXPRESSED UNDERSTANDING.
[2021-09-02 16:00] VITALS: BP 128/75
[2021-09-02] MEDS ORDERED: FUROSEMIDE 40 MG TABLET PO SCH (17:00)
== END 2021-09-02 14:40 | disposition left against medical advice (07) | DRG 194 ==
LOC: ER 03:08 → TELE3 05:12
PROVIDERS: ADMIT Internal Medicine; ATTEND Internal Medicine
PROC: 5A1D70Z Performance of Urinary Filtration, Intermittent, Less than 6 Hours Per Day (ICD-10-PCS; principal; 2021-08-31)
DX: I13.2 Hypertensive heart and chronic kidney disease with heart failure and with stage 5 chronic kidney disease, or end stage renal disease (principal); N18.6 End stage renal disease; D63.1 Anemia in chronic kidney disease; I48.92 Unspecified atrial flutter; E83.9 Disorder of mineral metabolism, unspecified; D50.9 Iron deficiency anemia, unspecified; F15.10 Other stimulant abuse, uncomplicated; I50.31 Acute diastolic (congestive) heart failure; Z99.2 Dependence on renal dialysis; Z91.15 Patient's noncompliance with renal dialysis; I16.9 Hypertensive crisis, unspecified; F17.210 Nicotine dependence, cigarettes, uncomplicated; G47.33 Obstructive sleep apnea (adult) (pediatric); Z20.822 Contact with and (suspected) exposure to COVID-19; Z86.73 Personal history of transient ischemic attack (TIA), and cerebral infarction without residual deficits; R73.9 Hyperglycemia, unspecified; J44.9 Chronic obstructive pulmonary disease, unspecified; Z98.890 Other specified postprocedural states; Z91.19 Patient's noncompliance with other medical treatment and regimen
CPT/HCPCS: 36415; 71045; 74018; 83550; 83735; 84100; 85025; 90937; 93005; A4663; G0378; J0360; J1940; J2060; J2916; J7040

== ENCOUNTER 2021-09-18 13:10 | Inpatient (IN) | payer OTHER ==
[~2021-09-18] VITALS: Ht 180.3 cm; Wt 49.4 kg
--- NOTE | 2021-09-18 13:34 | NUR ---
at bedside to examine pt.
[2021-09-18 13:52] LABS: HEMATOCRIT 23.9 % (36.7-47.1); MEAN CORPUSCULAR HEMOGLOBIN 30.3 uug (23.8-33.4); MEAN CORPUSCULAR VOLUME 89.7 fL (73.0-96.2); PLATELET COUNT (AUTO) 206 K/uL (152-348)
[2021-09-18 13:57] LABS: CARBON DIOXIDE 25 mmol/L (21-32); CHLORIDE 101 mmol/L (98-107); CREATININE 4.4 mg/dL (0.6-1.3); GLUCOSE 132 mg/dL (74-106); POTASSIUM 3.8 mmol/L (3.5-5.1); UREA NITROGEN, BLOOD 51 mg/dL (7-18)
[2021-09-18 14:18] LABS: ALANINE AMINOTRANSFERASE 11 U/L (16-63); ALKALINE PHOSPHATASE 130 U/L (50-136); ASPARTATE AMINOTRANSFERASE 7 U/L (15-37); BILIRUBIN,DIRECT 0.1 mg/dL (0.0-0.2); BILIRUBIN,TOTAL 0.5 mg/dL (0.2-1.0); TOTAL PROTEIN, SERUM 6.6 g/dL (6.4-8.2)
--- NOTE | 2021-09-18 15:30 | NUR ---
Spoke with Ms. Navarro and clinical report given, call transfer to area secretary for him to received admission autorization number as stated by Ms. Navarro
--- NOTE | 2021-09-18 16:05 | NUR ---
HR 100 NSR SBP 179/134, rr 25. Saturation of 97%. on 2L NC. Addendum: 09/18/21 at 1722 by JAY Md horn.
[2021-09-18] MEDS ORDERED: ONDANSETRON 4 MG/2 ML VIAL IV PRN (17:15)
[2021-09-18] MEDS ORDERED: TEMAZEPAM 15 MG CAPSULE PO PRN (17:15)
[2021-09-18] MEDS ORDERED: LEVALBUTEROL HCL NEB 0.63 MG/3 ML NEBU NEB PRN (17:15)
[2021-09-18] MEDS ORDERED: HYDROCODONE/APAP 5-325MG TABLET PO PRN (17:15)
[2021-09-18] MEDS ORDERED: ACETAMINOPHEN 325 MG TABLET PO PRN (17:15)
--- NOTE | 2021-09-18 17:15 | NUR ---
Telephone report given to Yoselin Kothari all systems covered pt. will be taken to third floor via wheelchair. HR o 99 sbp of 155/117 saturation of 97% on 3 Liters.
[2021-09-18] MEDS ORDERED: AMLODIPINE 5 MG TABLET ONE (17:20)
[2021-09-18] MEDS: AMLODIPINE 10 MG TABLET PO SCH (17:21)
[2021-09-18] MEDS ORDERED: ENALAPRILAT DIHYDRATE 1.25 MG/1 ML VIAL IV PRN (17:30)
--- NOTE | 2021-09-18 17:42 | NUR ---
pt taken up via [facility] on his bed room 318. receiving nurse Isabel at bedside.
[2021-09-18 18:10] VITALS: BP 162/117
--- NOTE | 2021-09-18 19:05 | NUR ---
admitted patient at 1730H, noted with permacath to the left upper chest, denies pain. Signed POLST DNI per patient request, in chart. noted with multiple bruising to the bilateral upper arm. On 4L nc, with SOB upon exertion. will endorse to the next shift for continuity of care.
--- NOTE | 2021-09-18 19:38 | NUR ---
Dr Krishnamurthy informed about the DNI POLST for signature. and Per Dr. Krishnamurthy he spoke with Dr Valles regarding HD order. Will endorse.
--- NOTE | 2021-09-18 20:00 | NUR ---
RECEIVED PATIENT ASLEEP IN BED. EASILY AROUSABLE. A/O X4. DENIES PAIN OR DISCOMFORT. NO RESP. DISTRESS NOTED. VS WNL. H/L INTACT AND PATENT. PERMA-CATH NOTED TO LEFT UPPER CHEST, INTACT. CALL LIGHT IN REACH. ALL NEEDS ATTENDED. WILL CONTINUE TO MONITOR AND ASSESS.
[2021-09-18 20:18] VITALS: BP 157/102
[2021-09-18] MEDS: CLONIDINE HCL 0.1 MG TABLET PO PRN (20:39)
[2021-09-18] MEDS: DOCUSATE SODIUM 100 MG CAPSULE PO SCH ×2 (20:39→20:47)
[2021-09-18] MEDS: HEPARIN SODIUM,PORCINE 5,000 UNITS/ML VIAL SQ SCH (20:40)
[2021-09-18] MEDS ORDERED: AMIODARONE HCL 200 MG TABLET PO SCH (21:00)
[2021-09-19 00:12] VITALS: BP 142/99
[2021-09-19 04:18] VITALS: BP 147/99
[2021-09-19] MEDS: PANTOPRAZOLE SODIUM 40 MG TABLET.DR PO SCH (06:03)
[2021-09-19] MEDS: LORAZEPAM 2 MG/1 ML VIAL IV PRN (06:39)
--- NOTE | 2021-09-19 06:39 | NUR ---
PATIENT AWAKE IN BED. SLEPT WELL THROUGHOUT THE NIGHT. VSS. ON TELE SR. CALL LIGHT IN REACH. ALL NEEDS ATTENDED. WILL CONTINUE TO MONITOR AND ASSESS.
[2021-09-19 07:22] LABS: MEAN CORPUSCULAR VOLUME 90.1 fL (73.0-96.2)
[2021-09-19 07:24] LABS: HEMATOCRIT 21.6 % (36.7-47.1); MEAN CORPUSCULAR HEMOGLOBIN 30.2 uug (23.8-33.4); PLATELET COUNT (AUTO) 181 K/uL (152-348)
[2021-09-19 07:38] LABS: BILIRUBIN,TOTAL 0.4 mg/dL (0.2-1.0); CREATININE 4.1 mg/dL (0.6-1.3); MAGNESIUM 2.1 mg/dL (1.8-2.4); PHOSPHOROUS 3.3 mg/dL (2.5-4.9); POTASSIUM 3.2 mmol/L (3.5-5.1)
[2021-09-19] MEDS: AMLODIPINE 10 MG TABLET PO SCH (09:54)
[2021-09-19] MEDS: FOLIC ACID/VITAMIN B COMP W-C TABLET PO SCH (09:54)
[2021-09-19] MEDS: ASPIRIN 81 MG TAB.CHEW PO SCH (09:54)
[2021-09-19] MEDS: HEPARIN SODIUM,PORCINE 5,000 UNITS/ML VIAL SQ SCH ×2 (10:01→21:08)
--- NOTE | 2021-09-19 10:04 | NUR ---
3 large bottles of tonic water noted at bedside, explained to patient he is on fluid restrictions, patient states i know i wont drink them all leave them there you cant take them. explained to patient the risk of exceeding fluid intake, patients states ok ok.
[2021-09-19] MEDS ORDERED: LABE100T5 PO (11:27)
[2021-09-19] MEDS ORDERED: ATOR20TA PO (11:30)
[2021-09-19 12:10] VITALS: BP 120/83
[2021-09-19] MEDS ORDERED: CLON0.1T PO (15:43)
[2021-09-19 16:00] VITALS: BP 131/89
[2021-09-19 20:00] VITALS: BP 160/98
--- NOTE | 2021-09-19 20:30 | NUR ---
Patient alert oriented, no sob no chest pain, tele monitor sinus rhythm, no complain of pain, BP elevated, will medicate as ordered, left chest perma cath dressing intact, patient non compliant with teaching not to drink too much due to patient on dialysis, will continue to encourage, cont to monitor.
[2021-09-19] MEDS: ATORVASTATIN 20 MG TABLET PO SCH (20:58)
[2021-09-19] MEDS: CLONIDINE HCL 0.1 MG TABLET PO PRN (20:59)
[2021-09-19] MEDS: DOCUSATE SODIUM 100 MG CAPSULE PO SCH (21:00)
[2021-09-20 01:18] LABS: BAND % (MANUAL) 2 % (0-10); EOSINOPHILS % (MANUAL) 21 % (0-8); LYMPHOCYTES % (MANUAL) 23 % (20-40); MONOCYTES % (MANUAL) 4 % (2-10); NEUTROPHILS % (MANUAL) 50 % (42-75)
[2021-09-20 04:00] VITALS: BP 153/99
[2021-09-20 06:07] LABS: HEPATITIS B SURFACE AG Negative (Negative)
[2021-09-20] MEDS: PANTOPRAZOLE SODIUM 40 MG TABLET.DR PO SCH (06:09)
--- NOTE | 2021-09-20 06:44 | NUR ---
Patient asleep but arousable, no sob no chest pain, no complain of pain, tele monitor sinus rhythm, sinus tachy, left chest perma cath dressing intact, will medicate for elevated BP as ordered.
[2021-09-20] MEDS: AMLODIPINE 10 MG TABLET PO SCH (06:50)
--- NOTE | 2021-09-20 06:51 | NUR ---
BP 153/99 Given Norvas 10mg po for elevated BP. will endorse to next shift.
[2021-09-20 06:54] LABS: HEMATOCRIT 22.1 % (36.7-47.1); MEAN CORPUSCULAR HEMOGLOBIN 30.5 uug (23.8-33.4); MEAN CORPUSCULAR VOLUME 89.7 fL (73.0-96.2); PLATELET COUNT (AUTO) 170 K/uL (152-348)
[2021-09-20 07:21] LABS: CREATININE 3.8 mg/dL (0.6-1.3); MAGNESIUM 2.1 mg/dL (1.8-2.4); PHOSPHOROUS 3.9 mg/dL (2.5-4.9); POTASSIUM 3.8 mmol/L (3.5-5.1)
[2021-09-20 07:31] LABS: THYROID STIMULATING HORMONE 1.731 mIU/mL (0.358-3.740)
[2021-09-20] MEDS: ASPIRIN 81 MG TAB.CHEW PO SCH (08:57)
[2021-09-20] MEDS: FOLIC ACID/VITAMIN B COMP W-C TABLET PO SCH (08:57)
[2021-09-20] MEDS: HEPARIN SODIUM,PORCINE 5,000 UNITS/ML VIAL SQ SCH ×2 (09:08→20:30)
[2021-09-20 11:52] VITALS: BP 119/79
[2021-09-20] MEDS: LORAZEPAM 2 MG/1 ML VIAL IV PRN (13:41)
[2021-09-20] MEDS: hydrALAZINE HCL 50 MG TABLET PO SCH ×2 (13:44→21:10)
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
[2021-09-20 15:56] VITALS: BP 111/75
--- NOTE | 2021-09-20 20:00 | NUR ---
Pt is refusing 0000H and 0400H vitals and states that he wants his vitals taken at 0600H.
[2021-09-20 20:23] VITALS: BP 128/91
[2021-09-20] MEDS: ATORVASTATIN 20 MG TABLET PO SCH (20:29)
[2021-09-20] MEDS: DOCUSATE SODIUM 100 MG CAPSULE PO SCH ×2 (20:29→20:57)
[2021-09-21 04:00] VITALS: BP 145/80
--- NOTE | 2021-09-21 05:40 | NUR ---
Slept throughout the night. Denies pain. States he "sometimes" has SOB but that the oxygen helps. IV site intact. Pt able to ambulate without assistance. Able to make needs known. Will endorse to day shift.
[2021-09-21] MEDS: hydrALAZINE HCL 50 MG TABLET PO SCH ×2 (06:00→15:41)
[2021-09-21 06:09] LABS: HEMATOCRIT 22.9 % (36.7-47.1); MEAN CORPUSCULAR HEMOGLOBIN 30.1 uug (23.8-33.4); MEAN CORPUSCULAR VOLUME 89.7 fL (73.0-96.2); PLATELET COUNT (AUTO) 167 K/uL (152-348)
[2021-09-21] MEDS: PANTOPRAZOLE SODIUM 40 MG TABLET.DR PO SCH (06:16)
[2021-09-21 06:17] LABS: CREATININE 3.3 mg/dL (0.6-1.3); PHOSPHOROUS 3.6 mg/dL (2.5-4.9); POTASSIUM 3.5 mmol/L (3.5-5.1)
[2021-09-21] MEDS ORDERED: NEPRO (VANILLA) 237 ML CAN PO SCH (09:00)
[2021-09-21] MEDS: FOLIC ACID/VITAMIN B COMP W-C TABLET PO SCH (09:07)
[2021-09-21] MEDS: ASPIRIN 81 MG TAB.CHEW PO SCH (09:07)
[2021-09-21] MEDS: HEPARIN SODIUM,PORCINE 5,000 UNITS/ML VIAL SQ SCH (09:10)
[2021-09-21] MEDS: AMLODIPINE 10 MG TABLET PO SCH (09:20)
--- NOTE | 2021-09-21 09:25 | NUR ---
Patient refused to have new IV line placed.
[2021-09-21] MEDS: LORAZEPAM 2 MG/1 ML VIAL IV PRN (12:01)
[2021-09-21 15:44] VITALS: BP_SYST 113; BP_SYST 136; BP_DIAS 56; BP_DIAS 86
--- NOTE | 2021-09-21 17:25 | NUR ---
Patient upset about turning down oxygen although physician informed him the importance of titrating oxygen. Patient was saturating 99% on 3L. Patient started to throw objects in the room when I began to titrate his oxygen down. Travis Hurtado spoke with patient, explained the risks and benefits of staying in the hospital and stressed the importance of continuing with hemodialysis. Patient's concerns were addressed. Patient understood risks and benefits and decided to leave against medical advice. Patient brought all belongings with him. Addendum: 09/21/21 at 1839 by BUFFY ALBERTO RN IV line removed
== END 2021-09-21 17:25 | disposition left against medical advice (07) | DRG 194 ==
LOC: ER 13:10 → TELE3 17:00
PROVIDERS: ADMIT Internal Medicine; ATTEND Nurse Practitioner Family
PROC: 5A1D70Z Performance of Urinary Filtration, Intermittent, Less than 6 Hours Per Day (ICD-10-PCS; principal; 2021-09-19)
DX: I13.2 Hypertensive heart and chronic kidney disease with heart failure and with stage 5 chronic kidney disease, or end stage renal disease (principal); J96.21 Acute and chronic respiratory failure with hypoxia; E43 Unspecified severe protein-calorie malnutrition; N18.6 End stage renal disease; D63.1 Anemia in chronic kidney disease; I48.92 Unspecified atrial flutter; I16.9 Hypertensive crisis, unspecified; I50.31 Acute diastolic (congestive) heart failure; Z91.15 Patient's noncompliance with renal dialysis; F15.90 Other stimulant use, unspecified, uncomplicated; F17.210 Nicotine dependence, cigarettes, uncomplicated; G47.33 Obstructive sleep apnea (adult) (pediatric); Z20.822 Contact with and (suspected) exposure to COVID-19; Z79.899 Other long term (current) drug therapy; Z86.73 Personal history of transient ischemic attack (TIA), and cerebral infarction without residual deficits; Z98.890 Other specified postprocedural states; R73.9 Hyperglycemia, unspecified; N25.0 Renal osteodystrophy; Z91.19 Patient's noncompliance with other medical treatment and regimen; Z99.2 Dependence on renal dialysis; Z68.1 Body mass index [BMI] 19.9 or less, adult; E66.9 Obesity, unspecified
CPT/HCPCS: 36415; 70030-TC; 71045; 83550; 83735; 84100; 84443; 84484; 85025; 86706; 87340; 90937; 93005; 97161; A4663; G0378; J1644; J2060; J7040

== ENCOUNTER 2021-10-16 02:20 | Inpatient (IN) | payer OTHER ==
[~2021-10-16] VITALS: Ht 177.8 cm; Wt 73.6 kg
[~2021-10-16 02:20] MED LIST changes: +ATOR20TA PO; +LABE100T5 PO; -METO25TA6 PO
[2021-10-16] MEDS ORDERED: LABETALOL HCL 100 MG/20 ML VIAL ONE (02:59)
[2021-10-16] MEDS ORDERED: LABETALOL HCL 100 MG/20 ML VIAL IV ONE (03:00)
[2021-10-16 03:10] LABS: HEMATOCRIT 27.5 % (36.7-47.1); MEAN CORPUSCULAR HEMOGLOBIN 30.5 uug (23.8-33.4); MEAN CORPUSCULAR VOLUME 91.9 fL (73.0-96.2); PLATELET COUNT (AUTO) 206 K/uL (152-348)
[2021-10-16 03:20] LABS: CARBON DIOXIDE 27 mmol/L (21-32); CHLORIDE 100 mmol/L (98-107); CREATININE 3.3 mg/dL (0.6-1.3); GLUCOSE 117 mg/dL (74-106); POTASSIUM 3.7 mmol/L (3.5-5.1); UREA NITROGEN, BLOOD 21 mg/dL (7-18)
[2021-10-16 03:33] LABS: ALANINE AMINOTRANSFERASE 27 U/L (16-63); ALKALINE PHOSPHATASE 147 U/L (50-136); ASPARTATE AMINOTRANSFERASE 22 U/L (15-37); BILIRUBIN,DIRECT 0.1 mg/dL (0.0-0.2); BILIRUBIN,TOTAL 0.5 mg/dL (0.2-1.0); TOTAL PROTEIN, SERUM 7.7 g/dL (6.4-8.2)
[2021-10-16] MEDS ORDERED: MAGNESIUM HYDROXIDE 30 ML LIQUID UDC PO PRN (05:45)
[2021-10-16] MEDS ORDERED: ACETAMINOPHEN 325 MG TABLET PO PRN (05:45)
[2021-10-16] MEDS ORDERED: ONDANSETRON 4 MG/2 ML VIAL IV PRN (05:45)
[2021-10-16] MEDS ORDERED: CLONIDINE HCL 0.1 MG TABLET PO PRN (05:45)
[2021-10-16] MEDS ORDERED: PIPERACILLIN SODIUM/TAZOBACTAM 3.375 G in IV DEXTROSE 5% 50 ML IV ONE (06:00)
[2021-10-16] MEDS ORDERED: AZITHROMYCIN IV 500 MG in IV DEXTROSE 5% 250 ML IV SCH (06:45)
[2021-10-16] MEDS ORDERED: AZITHROMYCIN 500MG/ D5W 250ML IVPB **ER PYXIS ONLY IV ONE (08:08)
[2021-10-16] MEDS ORDERED: PIPERACILLIN/TAZOBACTAM/D5W 50 ML IV ONE (08:08)
[2021-10-16] MEDS ORDERED: ASPIRIN 81 MG TAB.CHEW ONE (08:20)
[2021-10-16] MEDS ORDERED: AMIODARONE HCL 200 MG TABLET ONE (08:20)
[2021-10-16] MEDS ORDERED: AMLODIPINE 5 MG TABLET ONE (08:21)
[2021-10-16] MEDS ORDERED: LABETALOL HCL 100 MG TABLET ONE ×2 (08:22→14:07)
[2021-10-16] MEDS ORDERED: HEPARIN SODIUM,PORCINE 5,000 UNITS/ML VIAL ONE (08:23)
[2021-10-16] MEDS: AMIODARONE HCL 200 MG TABLET PO SCH ×2 (08:32→21:55)
[2021-10-16] MEDS: ASPIRIN 81 MG TAB.CHEW PO SCH (08:33)
[2021-10-16] MEDS: AMLODIPINE 10 MG TABLET PO SCH (08:33)
[2021-10-16] MEDS ORDERED: LABETALOL HCL 100 MG TABLET PO SCH (09:00)
[2021-10-16] MEDS: HEPARIN SODIUM,PORCINE 5,000 UNITS/ML VIAL SQ SCH ×2 (09:09→21:55)
[2021-10-16] MEDS ORDERED: CEFEPIME HCL 1 G in IV DEXTROSE 5% 50 ML IV SCH (14:00)
[2021-10-16] MEDS: LABETALOL HCL 100 MG TABLET PO SCH ×2 (14:10→22:56)
[2021-10-16] MEDS: CEFEPIME HCL 1 G in IV DEXTROSE 5% 50 ML IV SCH (18:19)
[2021-10-16] MEDS ORDERED: ATORVASTATIN 20 MG TABLET PO SCH (21:00)
[2021-10-16 21:30] VITALS: BP 127/83
[2021-10-17] VITALS: BP 121/81
[2021-10-17] MEDS ORDERED: TEMAZEPAM 15 MG CAPSULE PO ONE (01:45)
[2021-10-17 04:03] VITALS: BP 126/79
[2021-10-17] MEDS: LABETALOL HCL 100 MG TABLET PO SCH (05:08)
[2021-10-17 06:29] LABS: HEMATOCRIT 21.3 % (36.7-47.1); MEAN CORPUSCULAR HEMOGLOBIN 32.5 uug (23.8-33.4); MEAN CORPUSCULAR VOLUME 91.6 fL (73.0-96.2); PLATELET COUNT (AUTO) 155 K/uL (152-348)
[2021-10-17 06:44] LABS: BILIRUBIN,TOTAL 0.5 mg/dL (0.2-1.0); CREATININE 3.5 mg/dL (0.6-1.3); MAGNESIUM 2.1 mg/dL (1.8-2.4); PHOSPHOROUS 4.4 mg/dL (2.5-4.9); POTASSIUM 3.5 mmol/L (3.5-5.1); TOTAL PROTEIN, SERUM 5.8 g/dL (6.4-8.2)
[2021-10-17] MEDS: ASPIRIN 81 MG TAB.CHEW PO SCH (08:45)
[2021-10-17] MEDS: AMLODIPINE 10 MG TABLET PO SCH (08:46)
[2021-10-17] MEDS: HEPARIN SODIUM,PORCINE 5,000 UNITS/ML VIAL SQ SCH (08:47)
[2021-10-17 11:30] VITALS: BP 132/86
[2021-10-17] MEDS: ALPRAZOLAM 0.5 MG TABLET PO ONE ×2 (13:23→13:33)
[2021-10-17] MEDS ORDERED: LORAZEPAM 2 MG/1 ML VIAL IV ONE (13:45)
[2021-10-17 16:52] VITALS: BP 123/80
[2021-10-17] MEDS: CEFEPIME HCL 1 G in IV DEXTROSE 5% 50 ML IV SCH (17:07)
== END 2021-10-17 18:35 | disposition home or self-care (01) | DRG 194 ==
LOC: ER 02:22 → TRANSITION 06:20 → TELE3 21:06
PROVIDERS: ADMIT Nurse Practitioner Acute Care; ATTEND Internal Medicine
PROC: 5A1D70Z Performance of Urinary Filtration, Intermittent, Less than 6 Hours Per Day (ICD-10-PCS; principal; 2021-10-17)
DX: I13.2 Hypertensive heart and chronic kidney disease with heart failure and with stage 5 chronic kidney disease, or end stage renal disease (principal); J96.01 Acute respiratory failure with hypoxia; E43 Unspecified severe protein-calorie malnutrition; N18.6 End stage renal disease; I48.92 Unspecified atrial flutter; D63.8 Anemia in other chronic diseases classified elsewhere; I50.33 Acute on chronic diastolic (congestive) heart failure; I16.9 Hypertensive crisis, unspecified; Z99.2 Dependence on renal dialysis; Z91.14 Patient's other noncompliance with medication regimen; Z91.15 Patient's noncompliance with renal dialysis; G47.33 Obstructive sleep apnea (adult) (pediatric); F17.210 Nicotine dependence, cigarettes, uncomplicated; Z86.73 Personal history of transient ischemic attack (TIA), and cerebral infarction without residual deficits; Z98.890 Other specified postprocedural states; Z79.82 Long term (current) use of aspirin; Z79.899 Other long term (current) drug therapy; R94.31 Abnormal electrocardiogram [ECG] [EKG]; Z20.822 Contact with and (suspected) exposure to COVID-19; J98.11 Atelectasis; J44.9 Chronic obstructive pulmonary disease, unspecified; F15.10 Other stimulant abuse, uncomplicated; Z86.79 Personal history of other diseases of the circulatory system; R73.9 Hyperglycemia, unspecified
CPT/HCPCS: 36415; 71045; 83735; 84100; 84484; 85025; 85730; 87040; 93005; A4663; G0378; J0456; J0692; J1644; J2060; J2543; J3490

== ENCOUNTER 2021-12-10 22:57 | Inpatient (IN) | payer OTHER ==
[~2021-12-10] VITALS: Ht 177.8 cm; Wt 70.3 kg
--- NOTE | 2021-12-10 23:14 | NUR ---
DR. MIKE AT BEDSIDE, MSE IN PROGRESS.
--- NOTE | 2021-12-10 23:26 | NUR ---
call placed to Dr. Valles per the request of DR. Peres.
[2021-12-10] MEDS ORDERED: NICARDIPINE-NS IVPB 200 ML IV PRN (23:30)
--- NOTE | 2021-12-10 23:36 | NUR ---
XRAY AT BEDSIDE.
[2021-12-10] MEDS ORDERED: SODIUM CHLORIDE IV ONE (23:38)
[2021-12-10] MEDS ORDERED: NICARDIPINE IV ONE (23:38)
[2021-12-10 23:40] LABS: HEMATOCRIT 29.4 % (36.7-47.1); MEAN CORPUSCULAR HEMOGLOBIN 31.9 uug (23.8-33.4); MEAN CORPUSCULAR VOLUME 95.7 fL (73.0-96.2); PLATELET COUNT (AUTO) 186 K/uL (152-348)
[2021-12-10 23:45] LABS: CARBON DIOXIDE 25 mmol/L (21-32); CHLORIDE 100 mmol/L (98-107); CREATININE 3.8 mg/dL (0.6-1.3); GLUCOSE 142 mg/dL (74-106); POTASSIUM 4.4 mmol/L (3.5-5.1); UREA NITROGEN, BLOOD 41 mg/dL (7-18)
[2021-12-10] MEDS ORDERED: ASPIRIN 325 MG TABLET PO ONE (23:45)
[2021-12-10] MEDS ORDERED: NITROGLYCERIN 0.4 MG/TAB BOTTLE SL ONE ×2 (23:45→23:55)
[2021-12-10] MEDS ORDERED: NICARDIPINE IN DEXTROSE,ISO-OS 200 ML IV PRN (23:45)
[2021-12-10] MEDS ORDERED: methylPREDNISolone SOD SUCC 125 MG/2 ML VIAL IV ONE (23:45)
[2021-12-10] MEDS ORDERED: ASPIRIN 325 MG TABLET ONE (23:55)
[2021-12-10] MEDS ORDERED: methylPREDNISolone SOD SUCC 125 MG/2 ML VIAL ONE (23:55)
[2021-12-10] MEDS ORDERED: NICARDIPINE IN NS 200 ML IV PRN (23:58)
[2021-12-11] MEDS ORDERED: NICARDIPINE IN NS 20 MG/200 ML PIGGYBACK IV ONE
[2021-12-11 00:02] LABS: ALANINE AMINOTRANSFERASE 28 U/L (16-63); ALKALINE PHOSPHATASE 172 U/L (50-136); ASPARTATE AMINOTRANSFERASE 24 U/L (15-37); BILIRUBIN,DIRECT 0.4 mg/dL (0.0-0.2); BILIRUBIN,TOTAL 1.2 mg/dL (0.2-1.0); TOTAL PROTEIN, SERUM 7.2 g/dL (6.4-8.2)
--- NOTE | 2021-12-11 00:20 | NUR ---
PT HAS REFUSED FOR CT WITH CONTRAST DESPITE EXPLAINATION OF RISK, BENEFITS AND PURPOSE OF PROCEDURE BY BOTH DOCTOR AND RN. DR. SHOOK AWARE.
--- NOTE | 2021-12-11 01:12 | NUR ---
CAHTERINE LOWE PAGED FOR PANEL CALL.
--- NOTE | 2021-12-11 03:05 | NUR ---
CALLED DR. BULLARD AGAIN TO FOLLOW UP FOR DIALYSIS ORDERS, PER DR. BULLARD HE WILL PUT IN THE ORDERS NOW.
[2021-12-11] MEDS ORDERED: REMEDY ESSENTIAL ZINC PASTE 113 GM TP PRN (06:15)
[2021-12-11] MEDS ORDERED: MAGNESIUM HYDROXIDE 30 ML LIQUID UDC PO PRN (06:15)
[2021-12-11] MEDS ORDERED: ACETAMINOPHEN 325 MG TABLET PO PRN (06:15)
[2021-12-11] MEDS ORDERED: IPRATROPIUM BROMIDE 0.5 MG/2.5 ML NEBU NEB PRN (06:15)
[2021-12-11] MEDS ORDERED: ONDANSETRON 4 MG/2 ML VIAL IV PRN (06:15)
[2021-12-11] MEDS ORDERED: ALBUTEROL SULFATE 1.25 MG/3 ML NEBU NEB PRN (06:15)
--- NOTE | 2021-12-11 06:24 | NUR ---
CATHERINE LOWE AT BEDSIDE.
[2021-12-11 06:50] LABS: HEMATOCRIT 33.6 % (36.7-47.1); MEAN CORPUSCULAR HEMOGLOBIN 31.4 uug (23.8-33.4); MEAN CORPUSCULAR VOLUME 94.9 fL (73.0-96.2); PLATELET COUNT (AUTO) 177 K/uL (152-348)
--- NOTE | 2021-12-11 07:10 | NUR ---
GAVE REPORT TO GERTRUDIS TRISTAN. PT NTOED TO BE IN BED, NO SOB OR LABORED BREATHING, AFEBRILE. NO N/V/D. VSS.
[2021-12-11 07:33] LABS: CREATININE 3.8 mg/dL (0.6-1.3); PHOSPHOROUS 3.6 mg/dL (2.5-4.9); POTASSIUM 4.8 mmol/L (3.5-5.1)
[2021-12-11] MEDS ORDERED: methylPREDNISolone SOD SUCC 40 MG/ML VIAL IV SCH (08:25)
[2021-12-11] MEDS ORDERED: LABETALOL HCL 100 MG TABLET ONE (08:33)
[2021-12-11] MEDS ORDERED: methylPREDNISolone SOD SUCC 40 MG/ML VIAL ONE (08:33)
[2021-12-11] MEDS ORDERED: LABETALOL HCL 100 MG TABLET PO SCH (09:00)
[2021-12-11] MEDS ORDERED: AMLODIPINE 10 MG TABLET PO SCH (09:45)
--- NOTE | 2021-12-11 10:00 | NUR ---
Dr Montiel at the bedside for cardiac eval.
--- NOTE | 2021-12-11 10:10 | NUR ---
Jaden Hurtado DASHBOARD DEVELOPER at the bedside, Pt is arguing regarding his admission.
--- NOTE | 2021-12-11 10:26 | NUR ---
IV removed. Catheter intact and site benign. Pressure and 4x4 gauze applied to site. No bleeding noted.
--- NOTE | 2021-12-11 10:26 | NUR ---
Patient does not wish to proceed with medical care recommended by Dr. ( Jaden Hurtado/DR Michael ). Patient given information related to possible complications, up to and including , which could occur as a result of leaving the hospital at this time. Patient verbalizes understanding of risks involved due to leaving against medical advice. Patient has signed AMA form.
[2021-12-11 10:27] VITALS: BP 145/79
--- NOTE | 2021-12-11 10:30 | NUR ---
Called to Dr Beaver, photo machine operator regarding pt leaving AMA, to cancel HD.
[2021-12-11] MEDS ORDERED: ATORVASTATIN 20 MG TABLET PO SCH (21:00)
[2021-12-12 08:06] LABS: HEPATITIS B SURFACE AG Negative (Negative)
[2021-12-12 08:06] LABS: HEPATITIS B SURFACE AG Negative (Negative)
[2021-12-14] MEDS ORDERED: ATORVASTATIN 20 MG TABLET PO SCH (13:44)
[2021-12-14] MEDS ORDERED: AMLODIPINE 10 MG TABLET PO SCH (13:45)
== END 2021-12-11 10:30 | disposition left against medical advice (07) | DRG 194 ==
LOC: ER 23:01 → TRANSITION 12-11 08:22
PROVIDERS: ADMIT Nurse Practitioner Acute Care; ATTEND Nurse Practitioner Family
DX: I13.2 Hypertensive heart and chronic kidney disease with heart failure and with stage 5 chronic kidney disease, or end stage renal disease (principal); J96.01 Acute respiratory failure with hypoxia; E44.0 Moderate protein-calorie malnutrition; J44.1 Chronic obstructive pulmonary disease with (acute) exacerbation; I48.92 Unspecified atrial flutter; D63.1 Anemia in chronic kidney disease; E88.09 Other disorders of plasma-protein metabolism, not elsewhere classified; I16.1 Hypertensive emergency; I50.33 Acute on chronic diastolic (congestive) heart failure; N18.6 End stage renal disease; Z91.14 Patient's other noncompliance with medication regimen; Z53.29 Procedure and treatment not carried out because of patient's decision for other reasons; F17.200 Nicotine dependence, unspecified, uncomplicated; G47.33 Obstructive sleep apnea (adult) (pediatric); Z79.899 Other long term (current) drug therapy; F15.90 Other stimulant use, unspecified, uncomplicated; Z86.73 Personal history of transient ischemic attack (TIA), and cerebral infarction without residual deficits; Z86.79 Personal history of other diseases of the circulatory system; Z20.822 Contact with and (suspected) exposure to COVID-19; Z91.15 Patient's noncompliance with renal dialysis; Z91.19 Patient's noncompliance with other medical treatment and regimen; Z99.2 Dependence on renal dialysis
CPT/HCPCS: 36415; 71045; 83735; 84100; 84484; 85025; 85730; 86706; 87340; 93005; A4663; G0378; J2920; J2930

== ENCOUNTER 2022-03-11 08:52 | Emergency (ER) | payer SELFPAY ==
[~2022-03-11 08:52] MED LIST changes: -AMIO200T5 PO; -AMLO10TA59 PO; -ASPI81TA31 PO; -CLON0.1T PO
== END 2022-03-11 09:31 | disposition left against medical advice (07) ==
LOC: ER 08:57
DX: Z53.21 Procedure and treatment not carried out due to patient leaving prior to being seen by health care provider (principal)

== ENCOUNTER 2022-03-23 13:20 | Emergency (ER) | payer OTHER ==
[~2022-03-23] VITALS: Ht 177.8 cm; Wt 68.0 kg
[2022-03-23 14:09] LABS: HEMATOCRIT 35.9 % (36.7-47.1); MEAN CORPUSCULAR HEMOGLOBIN 30.1 uug (23.8-33.4); MEAN CORPUSCULAR VOLUME 92.4 fL (73.0-96.2); PLATELET COUNT (AUTO) 142 K/uL (152-348)
[2022-03-23 14:22] LABS: MAGNESIUM 2.2 mg/dL (1.8-2.4)
[2022-03-23 14:29] LABS: ALANINE AMINOTRANSFERASE 27 U/L (16-63); ALKALINE PHOSPHATASE 214 U/L (50-136); ASPARTATE AMINOTRANSFERASE 16 U/L (15-37); BILIRUBIN,DIRECT 0.2 mg/dL (0.0-0.2); BILIRUBIN,TOTAL 0.7 mg/dL (0.2-1.0); CARBON DIOXIDE 24 mmol/L (21-32); CHLORIDE 102 mmol/L (98-107); CREATININE 3.2 mg/dL (0.6-1.3); GLUCOSE 163 mg/dL (74-106); POTASSIUM 4.2 mmol/L (3.5-5.1); UREA NITROGEN, BLOOD 56 mg/dL (7-18)
[2022-03-23] MEDS ORDERED: ACETAMINOPHEN ES 500 MG TABLET ONE (15:12)
[2022-03-23] MEDS ORDERED: LABETALOL HCL 100 MG/20 ML VIAL ONE (15:12)
[2022-03-23] MEDS ORDERED: LABETALOL HCL 100 MG TABLET PO ONE (15:15)
[2022-03-23] MEDS ORDERED: LABETALOL HCL 100 MG/20 ML VIAL IV ONE (15:15)
[2022-03-23] MEDS ORDERED: ACETAMINOPHEN ES 500 MG TABLET PO ONE (15:15)
[2022-03-23 15:18] VITALS: BP 192/146
[2022-03-23] MEDS ORDERED: PROCHLORPERAZINE EDISYLATE 10 MG/2 ML VIAL IV ONE (16:45)
[2022-03-23] MEDS ORDERED: diphenhydrAMINE 25 MG CAP PO ONE ×2 (16:45→16:52)
[2022-03-23] MEDS ORDERED: PROCHLORPERAZINE EDISYLATE 10 MG/2 ML VIAL ONE (16:51)
[2022-03-23] MEDS ORDERED: hydrALAZINE HCL 20 MG/1 ML VIAL IV PRN (17:00)
[2022-03-23] MEDS ORDERED: MAGNESIUM HYDROXIDE 30 ML LIQUID UDC PO PRN (17:00)
[2022-03-23] MEDS ORDERED: ACETAMINOPHEN 325 MG TABLET PO PRN (17:00)
[2022-03-23] MEDS ORDERED: HEPARIN SODIUM,PORCINE 5,000 UNITS/ML VIAL SQ SCH (17:00)
[2022-03-23] MEDS ORDERED: REMEDY ESSENTIAL ZINC PASTE 113 GM TP PRN (17:00)
[2022-03-23] MEDS ORDERED: ONDANSETRON 4 MG/2 ML VIAL IV PRN (17:00)
--- NOTE | 2022-03-23 17:22 | NUR ---
Patient does not wish to proceed with medical care recommended by Dr. Bryan. Patient given information related to possible complications, up to and including , which could occur as a result of leaving the hospital at this time. Patient verbalizes understanding of risks involved due to leaving against medical advice. Patient has signed AMA form.
== END 2022-03-23 17:22 | disposition left against medical advice (07) ==
LOC: ER 13:20
DX: J96.21 Acute and chronic respiratory failure with hypoxia (principal); I13.2 Hypertensive heart and chronic kidney disease with heart failure and with stage 5 chronic kidney disease, or end stage renal disease; N18.6 End stage renal disease; I50.33 Acute on chronic diastolic (congestive) heart failure; Z99.2 Dependence on renal dialysis; R51.9 Headache, unspecified; Z53.29 Procedure and treatment not carried out because of patient's decision for other reasons; Z91.15 Patient's noncompliance with renal dialysis; Z86.73 Personal history of transient ischemic attack (TIA), and cerebral infarction without residual deficits; G47.30 Sleep apnea, unspecified; Z86.79 Personal history of other diseases of the circulatory system; Z87.01 Personal history of pneumonia (recurrent); Z79.899 Other long term (current) drug therapy; Z20.822 Contact with and (suspected) exposure to COVID-19
CPT/HCPCS: 80076; 80048; 83880; 83735; 84100; 85025; 87426; 84484 ×2; 36415; 93005; 71045; 99285; 96374; J3490; A9150; J0780; Q0163

== ENCOUNTER 2022-03-26 22:42 | Inpatient (IN) | payer OTHER ==
[~2022-03-26] VITALS: Ht 167.6 cm; Wt 72.1 kg
[~2022-03-26 22:42] MED LIST changes: -ATOR20TA PO
[2022-03-27] VITALS (7 sets, daily range): BP systolic 132–211; BP diastolic 92–155
--- NOTE | 2022-03-27 01:35 | NUR ---
Pt. in room, Covid test sent to lab. seen and examined by Dr. Sloan
[2022-03-27 01:48] LABS: HEMATOCRIT 39.6 % (36.7-47.1); MEAN CORPUSCULAR HEMOGLOBIN 29.9 uug (23.8-33.4); MEAN CORPUSCULAR VOLUME 92.2 fL (73.0-96.2); PLATELET COUNT (AUTO) 145 K/uL (152-348)
--- NOTE | 2022-03-27 01:56 | NUR ---
Pt. in bed, eyes closed, EKG done. NSR noted
[2022-03-27 02:01] LABS: CARBON DIOXIDE 19 mmol/L (21-32); CHLORIDE 102 mmol/L (98-107); CREATININE 3.8 mg/dL (0.6-1.3); GLUCOSE 99 mg/dL (74-106); POTASSIUM 4.7 mmol/L (3.5-5.1); UREA NITROGEN, BLOOD 62 mg/dL (7-18)
[2022-03-27 02:06] LABS: ALANINE AMINOTRANSFERASE 123 U/L (16-63); ALKALINE PHOSPHATASE 267 U/L (50-136); ASPARTATE AMINOTRANSFERASE 169 U/L (15-37); BILIRUBIN,DIRECT 0.6 mg/dL (0.0-0.2); BILIRUBIN,TOTAL 1.7 mg/dL (0.2-1.0); TOTAL PROTEIN, SERUM 7.5 g/dL (6.4-8.2)
[2022-03-27] MEDS ORDERED: FUROSEMIDE 40 MG/4 ML VIAL IV ONE (02:30)
[2022-03-27] MEDS ORDERED: FUROSEMIDE 40 MG/4 ML VIAL ONE ×2 (02:31→02:33)
--- NOTE | 2022-03-27 03:20 | NUR ---
called [facility] for panel call.
--- NOTE | 2022-03-27 03:24 | NUR ---
pt. has been accepted by Elan Reeves NP.
--- NOTE | 2022-03-27 03:27 | NUR ---
Called 3rd floor for bed. Spoke with Ravinder CABA. Will call me back
[2022-03-27] MEDS ORDERED: ONDANSETRON 4 MG/2 ML VIAL IV PRN (03:30)
[2022-03-27] MEDS ORDERED: ACETAMINOPHEN 325 MG TABLET PO PRN (03:30)
[2022-03-27] MEDS ORDERED: MAGNESIUM HYDROXIDE 30 ML LIQUID UDC PO PRN (03:30)
[2022-03-27] MEDS ORDERED: TEMAZEPAM 15 MG CAPSULE PO PRN (03:30)
[2022-03-27] MEDS ORDERED: REMEDY ESSENTIAL ZINC PASTE 113 GM TP PRN (03:30)
[2022-03-27] MEDS ORDERED: HYDROCODONE/APAP 5-325MG TABLET PO PRN (03:30)
--- NOTE | 2022-03-27 04:02 | NUR ---
Report given to Alayna CABA.
--- NOTE | 2022-03-27 04:10 | NUR ---
no charge/triage nurse in ER. medication not reconciled
--- NOTE | 2022-03-27 04:14 | NUR ---
MRSA swab collected sent to lab, pt. picked up send to [phone]
--- NOTE | 2022-03-27 04:16 | NUR ---
Picked up by GERTRUDIS Castellon
[2022-03-27] MEDS: hydrALAZINE HCL 20 MG/1 ML VIAL IV PRN (05:01)
--- NOTE | 2022-03-27 05:19 | NUR ---
Pt rec'd on floor via stretcher from ED Report Ed RN . Pt AAOx3 Moaning Dialysis pt who signed AMA on Saturday. MRSA swab done in ED. Bp elevated 211/155 Repeated when pt settled down 194/138. Hydralazine 10 mg given iv. REpeated 20mins 179/118. Pt c/o chest pain See assesssment. Narco given. Dialysis cath to left upper chest. Will continue to monitor.
[2022-03-27] MEDS: PANTOPRAZOLE SODIUM 40 MG TABLET.DR PO SCH (06:18)
--- NOTE | 2022-03-27 06:52 | NUR ---
Pt's Bp remains elevated. 183/136. Call placed to Dr Reeves. Returned NONEW ORDER. P t pending dialysis order not yet placed.
--- NOTE | 2022-03-27 08:00 | NUR ---
RECEIVED PATIENT IN BED AWAKE ALERT AND ORIENTED X3, C/O PAIN POSTERIOR AND ANTERIOR RIGHT SIDE OF THE CHEST. WILL GIVE PRN PAIN MEDS
[2022-03-27] MEDS: hydrALAZINE HCL 50 MG TABLET PO SCH ×3 (08:42→22:01)
[2022-03-27] MEDS: AMLODIPINE 10 MG TABLET PO SCH (08:42)
[2022-03-27] MEDS: HYDROCODONE/APAP 10-325 MG TABLET PO PRN (08:43)
[2022-03-27] MEDS ORDERED: LABETALOL HCL 100 MG TABLET PO SCH (09:00)
--- NOTE | 2022-03-27 09:00 | NUR ---
SEEN BY DR MOYER WITH ORDERS AND CARRIED
--- NOTE | 2022-03-27 09:00 | NUR ---
SEEN BY DR HENRY FOR CONSULT AND REVIEWED MEDS WITH ORDERS AND CARRIED
--- NOTE | 2022-03-27 15:37 | NUR ---
DISCHARGE HOME STABLE VIA AMBULANCE, REPORT GIVEN TO GILBERT JAVIER WITH MEDICATION AND FOLLOW-UP INSTRUCTION WITH PCP Addendum: 03/27/22 at 1546 by MAINE RODRIGUEZ RN ERROR
--- NOTE | 2022-03-27 15:57 | NUR ---
RESTING COMFORTABLY IN BED NO SIGNS OF ACUTE PAIN OR SOB SR 0 MONITO ON THE 80'S
[2022-03-28 00:08] VITALS: BP 151/95
[2022-03-28] MEDS: hydrALAZINE HCL 20 MG/1 ML VIAL IV PRN (04:34)
[2022-03-28] MEDS: PANTOPRAZOLE SODIUM 40 MG TABLET.DR PO SCH (06:44)
[2022-03-28] MEDS: hydrALAZINE HCL 50 MG TABLET PO SCH ×3 (06:44→22:36)
--- NOTE | 2022-03-28 08:00 | NUR ---
RECEIVED PATIENT AWAKE ALERT ANXIOUS/RESTLESS ABOUT RESTLESS BOTH UPPER AND LOWER EXT. REFUSING BLOOD DRAWING AND WANT TO GO AMA. EXPLAINED THE IMPORTANCE OF BLOOD DRAWING AND HD, PATIENT CALMED DOWN AFTER
[2022-03-28 08:09] LABS: HEMATOCRIT 35.7 % (36.7-47.1); MEAN CORPUSCULAR HEMOGLOBIN 30.1 uug (23.8-33.4); PLATELET COUNT (AUTO) 130 K/uL (152-348)
[2022-03-28] MEDS: HYDROCODONE/APAP 10-325 MG TABLET PO PRN ×2 (08:11→15:02)
[2022-03-28] MEDS: AMLODIPINE 10 MG TABLET PO SCH (08:12)
[2022-03-28 08:21] LABS: BILIRUBIN,TOTAL 1.2 mg/dL (0.2-1.0); CREATININE 3.9 mg/dL (0.6-1.3); MAGNESIUM 2.1 mg/dL (1.8-2.4); PHOSPHOROUS 3.5 mg/dL (2.5-4.9); POTASSIUM 3.3 mmol/L (3.5-5.1); TOTAL PROTEIN, SERUM 6.6 g/dL (6.4-8.2)
[2022-03-28 09:21] LABS: THYROID STIMULATING HORMONE 0.527 mIU/mL (0.358-3.740)
--- NOTE | 2022-03-28 09:57 | NUR ---
SEEN BY DR HENRY SEE NOTES, ALSO DR KNIGHT NOTIFIED ABOUT PLAN AND SAID WILL PUT ORDER FOR HD TODAY.
[2022-03-28 11:30] VITALS: BP 153/105
[2022-03-28] MEDS ORDERED: hydrALAZINE HCL 20 MG/1 ML VIAL IV PRN (11:56)
--- NOTE | 2022-03-28 15:35 | NUR ---
AWAITING HEMODIALYSIS, CONTINUE WITH PAIN MANAGEMENT AND BP MONITORING. SR ON MONITOR
[2022-03-28] MEDS: NICOTINE 14 MG/24HR PATCH TD SCH (16:37)
--- NOTE | 2022-03-28 16:38 | NUR ---
HEMODIALYSIS STARTED AT BEDSIDE, CLOSELY MONITORED
[2022-03-28 16:56] VITALS: BP 174/54
--- NOTE | 2022-03-28 18:53 | NUR ---
TOLERATING HD WELL.
[2022-03-29] VITALS: BP 170/116
[2022-03-29 04:00] VITALS: BP 140/101
--- NOTE | 2022-03-29 06:00 | NUR ---
--PT CONT. TO BE A/OX4 WITH STABLE VS. PT DENIES ANY S/S OF PAIN. SR. PT HAS LEFT CHEST HD CATH. PT SLEEPING QUIETLY THROUGH MOST OF THE NIGHT. NO S/S OF ANY ACUTE DISTRESS. RESPS HAVE BEEN REG/UNLAB. PT HAS BEEN VOIDING ALSO. PT ENDORSED TO DAYSHIFT RN IN STABLE COND. BENNY CABA
[2022-03-29] MEDS: PANTOPRAZOLE SODIUM 40 MG TABLET.DR PO SCH (06:49)
[2022-03-29] MEDS: hydrALAZINE HCL 50 MG TABLET PO SCH (06:49)
[2022-03-29 08:14] LABS: BILIRUBIN,TOTAL 0.8 mg/dL (0.2-1.0); CREATININE 2.9 mg/dL (0.6-1.3); POTASSIUM 3.3 mmol/L (3.5-5.1); TOTAL PROTEIN, SERUM 6.7 g/dL (6.4-8.2)
[2022-03-29 08:40] VITALS: BP 169/102
[2022-03-29] MEDS: NICOTINE 14 MG/24HR PATCH TD SCH (08:40)
[2022-03-29] MEDS: AMLODIPINE 10 MG TABLET PO SCH (08:40)
[2022-03-29] MEDS ORDERED: AMLO10TA59 PO (10:50)
[2022-03-29] MEDS ORDERED: FOLI0.8T2 PO (10:50)
[2022-03-29] MEDS ORDERED: HYDR100T27 PO (10:50)
--- NOTE | 2022-03-29 10:55 | NUR ---
SEEN BY DR THORNTON WITH DISCHARGE ORDER. SEE NOTES
--- NOTE | 2022-03-29 12:00 | NUR ---
discagred home stable with discgarge medication and follow-up instruction for HD
== END 2022-03-29 12:00 | disposition home or self-care (01) | DRG 194 ==
LOC: ER 22:47 → TELE3 03-27 03:20 → MEDSURG3 03-29 08:09
PROVIDERS: ADMIT Internal Medicine; ATTEND Internal Medicine
PROC: 5A1D70Z Performance of Urinary Filtration, Intermittent, Less than 6 Hours Per Day (ICD-10-PCS; principal; 2022-03-28)
DX: I13.2 Hypertensive heart and chronic kidney disease with heart failure and with stage 5 chronic kidney disease, or end stage renal disease (principal); J96.01 Acute respiratory failure with hypoxia; E43 Unspecified severe protein-calorie malnutrition; D69.6 Thrombocytopenia, unspecified; N18.6 End stage renal disease; I48.92 Unspecified atrial flutter; I50.33 Acute on chronic diastolic (congestive) heart failure; I16.9 Hypertensive crisis, unspecified; Z91.15 Patient's noncompliance with renal dialysis; Z99.2 Dependence on renal dialysis; Z20.822 Contact with and (suspected) exposure to COVID-19; E87.6 Hypokalemia; J44.9 Chronic obstructive pulmonary disease, unspecified; Z86.73 Personal history of transient ischemic attack (TIA), and cerebral infarction without residual deficits; R74.01 Elevation of levels of liver transaminase levels; Z68.25 Body mass index [BMI] 25.0-25.9, adult; G47.30 Sleep apnea, unspecified; G47.33 Obstructive sleep apnea (adult) (pediatric); F15.90 Other stimulant use, unspecified, uncomplicated; Z87.891 Personal history of nicotine dependence; Z59.00 Homelessness unspecified; Z91.199 Patient's noncompliance with other medical treatment and regimen due to unspecified reason
CPT/HCPCS: 36415; 71045; 83735; 84100; 84443; 84484; 85025; 90937; 93005; A4663; G0378; J0360; J1940; J7040